=== PATIENT | male | born 1935 | race Caucasian/White ===

== ENCOUNTER 2016-08-13 10:27 | Inpatient (IN) | payer MEDICARE ==
[~2016-08-13] VITALS: Ht 177.8 cm; Wt 85.5 kg
[2016-08-13] MEDS ORDERED: SODIUM CHLORIDE FLUSH 10ML SYR IVF ONE (11:30)
[2016-08-13 11:43] LABS: ASPARTATE AMINO TRANSFERASE 53 U/L (15-37); BLOOD UREA NITROGEN 13 mg/dL (7-18)
[2016-08-13] MEDS ORDERED: SIMV5TAB5 PO (11:46)
[2016-08-13] MEDS ORDERED: METF100010 PO (11:46)
[2016-08-13] MEDS ORDERED: TAMS0.4C2 PO (11:47)
[2016-08-13 11:48] LABS: IS PT STATUS REG ER OR PRE ER? YES
[2016-08-13] MEDS ORDERED: ASPI-515 PO (11:48)
[2016-08-13] MEDS ORDERED: MULT-717 PO (11:48)
[2016-08-13] MEDS ORDERED: TIMO5DRO5 EACHEYE (11:49)
[2016-08-13] MEDS ORDERED: LATANOPROST EACHEYE (11:50)
[2016-08-13] MEDS ORDERED: LATA2.5D3 EACHEYE (11:53)
[2016-08-13] MEDS: SODIUM CHLORIDE 0.9% 1,000 ML IV SCH ×2 (12:20→18:26)
[2016-08-13] MEDS ORDERED: ONDANSETRON 2MG/ML, 2ML IVPush PRN ×2 (12:30→13:00)
[2016-08-13] MEDS ORDERED: ACETAMINOPHEN 325 MG TABLET PO PRN ×3 (12:30→15:30)
[2016-08-13] MEDS ORDERED: HEPARIN 1,000 UNITS/ML, 1ML IVPush ONE (12:30)
[2016-08-13] MEDS ORDERED: ASPIRIN 325 MG TABLET PO SCH (12:30)
[2016-08-13] MEDS ORDERED: SODIUM CHLORIDE 0.9% 1,000 ML IV SCH ×2 (12:45→15:07)
[2016-08-13] MEDS ORDERED: morphine SULFATE 10 MG/ML, 1ML IVPush PRN (13:00)
[2016-08-13] MEDS ORDERED: GLUCAGON 1 MG IM PRN (13:00)
[2016-08-13] MEDS ORDERED: DOCUSATE 100 MG CAPSULE PO PRN (13:00)
[2016-08-13] MEDS ORDERED: DEXTROSE 4 GM TAB.CHEW PO PRN (13:00)
[2016-08-13] MEDS ORDERED: DEXTROSE 50%, 50ML SYRINGE IVPush PRN (13:00)
[2016-08-13] MEDS ORDERED: hydrALAzine 20 MG/ML, 1ML IVPush PRN (13:00)
[2016-08-13] MEDS ORDERED: TICAGRELOR 90 MG TABLET ONE (13:29)
[2016-08-13] MEDS ORDERED: MIDAZOLAM 1 MG/ML, 5ML ONE (13:29)
[2016-08-13] MEDS ORDERED: BIVALIRUDIN 250 MG ONE ×2 (13:29→14:59)
[2016-08-13] MEDS ORDERED: NITROGLYCERIN 5 MG/ML, 10ML ONE (13:29)
[2016-08-13] MEDS ORDERED: FENTANYL PF 100 MCG/2ML ONE (13:29)
[2016-08-13] MEDS ORDERED: HEPARIN 1,000 UNITS/ML, 10ML ONE (13:29)
[2016-08-13] MEDS ORDERED: LIDOCAINE 2%, 20ML ONE (13:30)
[2016-08-13] MEDS: METOPROLOL SUCCINATE 25 MG TAB.ER.24H PO SCH (13:30)
[2016-08-13] MEDS ORDERED: ASPIRIN 325 MG TABLET EC ONE (15:03)
[2016-08-13] MEDS ORDERED: BIVALIRUDIN 250 MG in DEXTROSE 5% 50 ML IV SCH (15:07)
[2016-08-13] MEDS: INSULIN ASPART 100 UNITS/ML, PEN SQ-INSULIN SCH ×2 (16:00→21:00)
[2016-08-13 18:41] LABS: IS PT STATUS REG ER OR PRE ER? NO
[2016-08-13 18:59] VITALS: BP 125/75
[2016-08-13] MEDS ORDERED: ATORVASTATIN 40 MG TABLET PO SCH (21:00)
[2016-08-13] MEDS: TIMOLOL OPHTH 0.5%, 5ML EACHEYE SCH (21:00)
[2016-08-13] MEDS: TICAGRELOR 90 MG TABLET PO SCH (22:01)
[2016-08-13] MEDS: SODIUM CHLORIDE FLUSH 10ML SYR IVF SCH (22:01)
[2016-08-13] MEDS: ATORVASTATIN 40 MG TABLET PO SCH (22:01)
[2016-08-14 00:27] LABS: IS PT STATUS REG ER OR PRE ER? NO
[2016-08-14 02:29] VITALS: BP 114/64
[2016-08-14 06:26] LABS: ASPARTATE AMINO TRANSFERASE 29 U/L (15-37); BLOOD UREA NITROGEN 13 mg/dL (7-18)
[2016-08-14 06:27] LABS: IS PT STATUS REG ER OR PRE ER? NO
[2016-08-14 06:34] VITALS: BP 129/76
[2016-08-14] MEDS: INSULIN ASPART 100 UNITS/ML, PEN SQ-INSULIN SCH ×4 (07:00→20:37)
[2016-08-14] MEDS: ASPIRIN 81 MG TABLET EC PO SCH ×2 (08:29→08:31)
[2016-08-14] MEDS: TICAGRELOR 90 MG TABLET PO SCH ×2 (08:31→20:37)
[2016-08-14] MEDS: TAMSULOSIN 0.4 MG CAP.ER.24H PO SCH (08:31)
[2016-08-14] MEDS: METOPROLOL SUCCINATE 25 MG TAB.ER.24H PO SCH (08:32)
[2016-08-14] MEDS ORDERED: VIT1CAPS11 PO (08:33)
[2016-08-14] MEDS ORDERED: LATANOPROST OPHTH 0.005%, 2.5ML EACHEYE SCH ×2 (09:00→21:00)
[2016-08-14] MEDS: TIMOLOL OPHTH 0.5%, 5ML EACHEYE SCH ×2 (09:00→20:39)
[2016-08-14] MEDS: SODIUM CHLORIDE FLUSH 10ML SYR IVF SCH ×2 (09:00→20:37)
[2016-08-14 13:55] VITALS: BP 109/70
[2016-08-14 19:28] VITALS: BP 125/66
[2016-08-14] MEDS: ATORVASTATIN 40 MG TABLET PO SCH (20:37)
[2016-08-15 02:54] VITALS: BP 101/59
[2016-08-15 05:43] VITALS: BP 114/61
[2016-08-15] MEDS: METOPROLOL SUCCINATE 25 MG TAB.ER.24H PO SCH (05:45)
[2016-08-15 06:41] LABS: BLOOD UREA NITROGEN 14 mg/dL (7-18)
[2016-08-15] MEDS: INSULIN ASPART 100 UNITS/ML, PEN SQ-INSULIN SCH (07:00)
[2016-08-15 07:45] VITALS: BP 127/73
[2016-08-15] MEDS: SODIUM CHLORIDE FLUSH 10ML SYR IVF SCH (08:02)
[2016-08-15] MEDS: TICAGRELOR 90 MG TABLET PO SCH (08:02)
[2016-08-15] MEDS: TAMSULOSIN 0.4 MG CAP.ER.24H PO SCH (08:02)
[2016-08-15] MEDS: ASPIRIN 81 MG TABLET EC PO SCH ×2 (08:02→08:03)
[2016-08-15] MEDS: TIMOLOL OPHTH 0.5%, 5ML EACHEYE SCH (08:03)
[2016-08-15] MEDS ORDERED: METO25TA91 PO (08:42)
[2016-08-15] MEDS ORDERED: TICA90TA PO (08:42)
[2016-08-15] MEDS ORDERED: ATOR40TA78 PO (08:42)
== END 2016-08-15 10:30 | disposition home or self-care (01) | DRG 246 ==
LOC: ED 12:22 → EDIP 12:45 → 5SO 15:21 → DCLOUNGE 08-15 10:04
PROVIDERS: ADMIT Family Medicine; ATTEND Family Medicine
PROC: 027034Z Dilation of Coronary Artery, One Artery with Drug-eluting Intraluminal Device, Percutaneous Approach (ICD-10-PCS; principal; 2016-08-13)
PROC: 4A023N7 Measurement of Cardiac Sampling and Pressure, Left Heart, Percutaneous Approach (ICD-10-PCS; 2016-08-13)
PROC: B2111ZZ Fluoroscopy of Multiple Coronary Arteries using Low Osmolar Contrast (ICD-10-PCS; 2016-08-13)
PROC: B2131ZZ Fluoroscopy of Multiple Coronary Artery Bypass Grafts using Low Osmolar Contrast (ICD-10-PCS; 2016-08-13)
PROC: B2151ZZ Fluoroscopy of Left Heart using Low Osmolar Contrast (ICD-10-PCS; 2016-08-13)
PROC: B2181ZZ Fluoroscopy of Left Internal Mammary Bypass Graft using Low Osmolar Contrast (ICD-10-PCS; 2016-08-13)
DX: T82.858A Stenosis of other vascular prosthetic devices, implants and grafts, initial encounter (principal); I21.4 Non-ST elevation (NSTEMI) myocardial infarction; I25.810 Atherosclerosis of coronary artery bypass graft(s) without angina pectoris; E78.5 Hyperlipidemia, unspecified; N40.0 Benign prostatic hyperplasia without lower urinary tract symptoms; H40.9 Unspecified glaucoma; I10 Essential (primary) hypertension; E11.9 Type 2 diabetes mellitus without complications; I25.5 Ischemic cardiomyopathy; I25.2 Old myocardial infarction; Z87.891 Personal history of nicotine dependence; Z88.5 Allergy status to narcotic agent; Z81.8 Family history of other mental and behavioral disorders; Z82.49 Family history of ischemic heart disease and other diseases of the circulatory system
CPT/HCPCS: 36415; 71010; 80048; 80053; 80061; 82962; 83036; 83735; 84100; 84443; 84484; 85025; 85610; 85730; 93005; 93306; 93458; 99156; 99157; 99285; C1760; C1894; C9604; J0583; J1644; J2250; J3010; J3490; C1725; C1769; C1874; C1887; J7030; Q9967

== ENCOUNTER 2017-10-28 17:40 | Inpatient (IN) | payer MEDICARE ==
[~2017-10-28] VITALS: Ht 172.7 cm; Wt 84.9 kg
[~2017-10-28 17:40] MED LIST: ASPI-515 PO; ATOR40TA78 PO; LATA2.5D3 EACHEYE; LATANOPROST EACHEYE; METF100010 PO; METO25TA91 PO; MULT-717 PO; SIMV5TAB5 PO; TAMS0.4C2 PO; TICA90TA PO; TIMO5DRO5 EACHEYE; VIT1CAPS11 PO
[2017-10-28] MEDS ORDERED: SODIUM CHLORIDE FLUSH 10ML SYR IVF ONE (18:30)
[2017-10-28 18:42] LABS: BASOPHILS # (AUTO) 0.01 x10^3/uL (0-0.1); BASOPHILS % (AUTO) 0 % (0-1); EOSINOPHILS # (AUTO) 0.12 x10^3/uL (0-0.4); EOSINOPHILS % (AUTO) 2 % (1-7); LYMPHOCYTES # (AUTO) 1.61 x10^3/uL (1-3.4); LYMPHOCYTES % (AUTO) 23 % (22-44); MD NO; MEAN CORPUSCULAR HEMOGLOBIN 33.8 pg (27.5-34.5); MEAN CORPUSCULAR HGB CONC 34.9 g/dL (33.2-36.2); MEAN CORPUSCULAR VOLUME 96.8 fL (81-97); MEAN PLATELET VOLUME 8.9 fL (7.4-10.4); MONOCYTES # (AUTO) 0.58 x10^3/uL (0.2-0.8); MONOCYTES % (AUTO) 8 % (2-9); NEUTROPHILS # (AUTO) 4.59 x10^3/uL (1.8-6.8); NEUTROPHILS % (AUTO) 67 % (42-75); PLATELET COUNT 275 x10^3/uL (130-400); RED BLOOD COUNT 4.22 x10^6/uL (4.38-5.82); RED CELL DISTRIBUTION WIDTH 13.8 % (9.4-14.8)
[2017-10-28 18:54] LABS: INTERNATIONAL NORMALIZED RATIO 1.37 (0.93-1.1); PROTHROMBIN TIME 14.2 Seconds (9.6-11.5)
[2017-10-28 18:56] LABS: ALANINE AMINOTRANSFERASE 508 U/L (12-78); ALBUMIN 2.9 g/dL (3.4-5.0); ANION GAP 8 mmol/L (5-15); CALCIUM 9.6 mg/dL (8.5-10.1); CHLORIDE 102 mmol/L (98-107); CREATININE 1.04 mg/dL (0.7-1.3)
[2017-10-28 19:03] LABS: MICROSCOPIC INDICATED
[2017-10-28 19:07] LABS: CULTURE INDICATED? YES
[2017-10-28 19:09] LABS: ALKALINE PHOSPHATASE 2250 U/L (45-117)
[2017-10-28] MEDS ORDERED: OMNIPAQUE 350 MG/ML, 100ML BOTTLE ONE (21:51)
[2017-10-28 23:18] VITALS: BP 131/72
[2017-10-29] MEDS ORDERED: TIMOLOL OPHTH 0.5%, 5ML EACHEYE SCH
[2017-10-29] MEDS: SODIUM CHLORIDE 0.9% 1,000 ML IV SCH ×2 (00:17→15:00)
[2017-10-29] MEDS: ATORVASTATIN 80 MG TABLET PO SCH ×2 (00:17→20:19)
[2017-10-29] MEDS: TIMOLOL OPHTH 0.5%, 5ML EACHEYE SCH ×3 (00:17→20:19)
[2017-10-29] MEDS: LATANOPROST OPHTH 0.005%, 2.5ML EACHEYE SCH ×2 (00:22→20:35)
[2017-10-29] MEDS: INSULIN LISPRO 100 UNITS/ML, PEN SQ-INSULIN SCH ×5 (00:30→20:20)
[2017-10-29 02:34] VITALS: BP 137/64
[2017-10-29 05:22] LABS: ALBUMIN 2.5 g/dL (3.4-5.0); BASOPHILS # (AUTO) 0.01 x10^3/uL (0-0.1); BASOPHILS % (AUTO) 0 % (0-1); CALCIUM 9.1 mg/dL (8.5-10.1); CHLORIDE 102 mmol/L (98-107); EOSINOPHILS # (AUTO) 0.22 x10^3/uL (0-0.4); EOSINOPHILS % (AUTO) 4 % (1-7); LYMPHOCYTES # (AUTO) 1.03 x10^3/uL (1-3.4); LYMPHOCYTES % (AUTO) 16 % (22-44); MD NO; MEAN CORPUSCULAR HEMOGLOBIN 33.1 pg (27.5-34.5); MEAN CORPUSCULAR HGB CONC 34.6 g/dL (33.2-36.2); MEAN CORPUSCULAR VOLUME 95.7 fL (81-97); MEAN PLATELET VOLUME 9.1 fL (7.4-10.4); MONOCYTES # (AUTO) 0.66 x10^3/uL (0.2-0.8); MONOCYTES % (AUTO) 11 % (2-9); NEUTROPHILS # (AUTO) 4.42 x10^3/uL (1.8-6.8); NEUTROPHILS % (AUTO) 70 % (42-75); PLATELET COUNT 240 x10^3/uL (130-400); RED BLOOD COUNT 3.77 x10^6/uL (4.38-5.82); RED CELL DISTRIBUTION WIDTH 13.4 % (9.4-14.8)
[2017-10-29 05:40] LABS: ALANINE AMINOTRANSFERASE 409 U/L (12-78); ALKALINE PHOSPHATASE 1844 U/L (45-117); ANION GAP 9 mmol/L (5-15); BILIRUBIN,TOTAL 13.5 mg/dL (0.2-1.0); CREATININE 0.88 mg/dL (0.7-1.3); TOTAL PROTEIN 5.7 g/dL (6.4-8.2)
[2017-10-29] MEDS ORDERED: LATANOPROST OPHTH 0.005%, 2.5ML EACHEYE SCH (09:00)
[2017-10-29] MEDS: CENTRUM SILVER HOMEMEDPO SCH (09:00)
[2017-10-29] MEDS: TAMSULOSIN 0.4 MG CAP.ER.24H PO SCH (09:00)
[2017-10-29 09:59] VITALS: BP 112/64
[2017-10-29 14:53] VITALS: BP 133/73
[2017-10-29 20:38] VITALS: BP 121/65
[2017-10-30] MEDS: SODIUM CHLORIDE 0.9% 1,000 ML IV SCH ×3 (01:07→23:14)
[2017-10-30 01:15] VITALS: BP 108/64
[2017-10-30 04:58] LABS: ALBUMIN 2.2 g/dL (3.4-5.0); ANION GAP 8 mmol/L (5-15); CALCIUM 8.6 mg/dL (8.5-10.1); CHLORIDE 107 mmol/L (98-107)
[2017-10-30 04:59] LABS: BASOPHILS # (AUTO) 0.01 x10^3/uL (0-0.1); BASOPHILS % (AUTO) 0 % (0-1); EOSINOPHILS # (AUTO) 0.08 x10^3/uL (0-0.4); EOSINOPHILS % (AUTO) 1 % (1-7); LYMPHOCYTES # (AUTO) 1.03 x10^3/uL (1-3.4); LYMPHOCYTES % (AUTO) 18 % (22-44); MD NO; MEAN CORPUSCULAR HEMOGLOBIN 32.6 pg (27.5-34.5); MEAN CORPUSCULAR HGB CONC 34.1 g/dL (33.2-36.2); MEAN CORPUSCULAR VOLUME 95.7 fL (81-97); MEAN PLATELET VOLUME 8.9 fL (7.4-10.4); MONOCYTES # (AUTO) 0.57 x10^3/uL (0.2-0.8); MONOCYTES % (AUTO) 10 % (2-9); NEUTROPHILS # (AUTO) 4.06 x10^3/uL (1.8-6.8); NEUTROPHILS % (AUTO) 71 % (42-75); PLATELET COUNT 249 x10^3/uL (130-400); RED BLOOD COUNT 3.75 x10^6/uL (4.38-5.82)
[2017-10-30 05:28] LABS: ALANINE AMINOTRANSFERASE 394 U/L (12-78); ALKALINE PHOSPHATASE 1837 U/L (45-117); BILIRUBIN,TOTAL 13.6 mg/dL (0.2-1.0); CREATININE 0.88 mg/dL (0.7-1.3); TOTAL PROTEIN 5.6 g/dL (6.4-8.2)
[2017-10-30] MEDS: INSULIN LISPRO 100 UNITS/ML, PEN SQ-INSULIN SCH ×4 (07:00→20:49)
[2017-10-30] MEDS: TAMSULOSIN 0.4 MG CAP.ER.24H PO SCH (07:33)
[2017-10-30] MEDS: TIMOLOL OPHTH 0.5%, 5ML EACHEYE SCH ×2 (07:33→20:43)
[2017-10-30] MEDS: CENTRUM SILVER HOMEMEDPO SCH (07:34)
[2017-10-30 08:05] VITALS: BP 127/64
[2017-10-30 13:17] VITALS: BP 129/71
[2017-10-30] MEDS ORDERED: SIMETHICONE DROPS 40 MG/0.6 ML BOTTLE ONE (14:11)
[2017-10-30] MEDS ORDERED: FENTANYL PF 100 MCG/2ML ONE (14:19)
[2017-10-30] MEDS ORDERED: LIDOCAINE GEL 2%, 5ML ONE (14:20)
[2017-10-30] MEDS ORDERED: ONDANSETRON 2MG/ML, 2ML ONE (14:21)
[2017-10-30] MEDS ORDERED: DEXAMETHASONE 4 MG/ML, 1ML ONE (14:21)
[2017-10-30] MEDS ORDERED: CEFAZOLIN 1,000 MG ONE (14:21)
[2017-10-30] MEDS ORDERED: ALBUTEROL SULFATE 2.5 MG/3 ML NPPB PRN (15:00)
[2017-10-30] MEDS ORDERED: PROMETHAZINE 25 MG/ML, 1ML IV PRN (15:00)
[2017-10-30] MEDS ORDERED: LABETALOL 5MG/ML, 20ML IV PRN (15:00)
[2017-10-30] MEDS ORDERED: OXYcodone 5 MG/5 ML ORAL.SOL UDC PO PRN (15:00)
[2017-10-30] MEDS ORDERED: LORazepam 2 MG/ML, 1ML IVPush PRN (15:00)
[2017-10-30] MEDS ORDERED: hydrALAzine 20 MG/ML, 1ML IV PRN (15:00)
[2017-10-30] MEDS ORDERED: ONDANSETRON 2MG/ML, 2ML IV PRN (15:00)
[2017-10-30] MEDS ORDERED: FENTANYL PF 100 MCG/2ML IV PRN (15:00)
[2017-10-30] MEDS ORDERED: PROMETHAZINE 12.5 MG SUPP PR PRN (15:00)
[2017-10-30] MEDS ORDERED: ONDANSETRON ODT 8 MG PO PRN (15:00)
[2017-10-30] MEDS ORDERED: MORPHINE SULFATE 4 MG/ML, 1ML IVPush PRN (15:00)
[2017-10-30] MEDS ORDERED: MIDAZOLAM 1 MG/ML, 2ML IV PRN (15:00)
[2017-10-30] MEDS ORDERED: EPHEDRINE 50 MG/ML, 1ML IVPush PRN (15:00)
[2017-10-30] MEDS ORDERED: HYDROmorphone 1 MG/ML, 1ML IV PRN (15:00)
[2017-10-30] MEDS ORDERED: MEPERIDINE/PF 25MG/0.5ML IVPush PRN (15:00)
[2017-10-30] MEDS ORDERED: SUCCINYLCHOLINE 20 MG/ML, 10ML ONE (15:25)
[2017-10-30] MEDS ORDERED: PROPOFOL 10 MG/ML, 20ML ONE (15:25)
[2017-10-30] MEDS ORDERED: ROCURONIUM 10MG/ML,5ML ONE (15:25)
[2017-10-30] MEDS ORDERED: OMNIPAQUE 350 MG/ML, 50 ML BOTTLE ONE (15:45)
[2017-10-30 20:34] VITALS: BP 132/61
[2017-10-30] MEDS: ATORVASTATIN 80 MG TABLET PO SCH (20:43)
[2017-10-30] MEDS: LATANOPROST OPHTH 0.005%, 2.5ML EACHEYE SCH (20:44)
[2017-10-30] MEDS ORDERED: CALCIUM CARBONATE 500 MG TAB.CHEW PO PRN (22:30)
[2017-10-31 00:21] VITALS: BP 119/63
[2017-10-31] MEDS ORDERED: ONDANSETRON ODT 4 MG PO PRN (00:30)
[2017-10-31 03:38] VITALS: BP 113/60
[2017-10-31 04:55] LABS: INTERNATIONAL NORMALIZED RATIO 1.57 (0.93-1.1); PROTHROMBIN TIME 16.2 Seconds (9.6-11.5)
[2017-10-31 05:00] LABS: CHLORIDE 106 mmol/L (98-107)
[2017-10-31 05:16] LABS: ALANINE AMINOTRANSFERASE 385 U/L (12-78); ALBUMIN 2.3 g/dL (3.4-5.0); ALKALINE PHOSPHATASE 1975 U/L (45-117); ANION GAP 9 mmol/L (5-15); CALCIUM 9.1 mg/dL (8.5-10.1); CREATININE 0.91 mg/dL (0.7-1.3); TOTAL PROTEIN 5.6 g/dL (6.4-8.2)
[2017-10-31 05:25] LABS: MEAN CORPUSCULAR HEMOGLOBIN 33.9 pg (27.5-34.5); MEAN CORPUSCULAR HGB CONC 35.3 g/dL (33.2-36.2); MEAN CORPUSCULAR VOLUME 96.2 fL (81-97); MEAN PLATELET VOLUME 9.5 fL (7.4-10.4); PLATELET COUNT 265 x10^3/uL (130-400); RED BLOOD COUNT 3.81 x10^6/uL (4.38-5.82)
[2017-10-31 06:14] LABS: MD YES
[2017-10-31 06:15] LABS: LYMPHS% (MANUAL) 10 % (22-44); MONOS% (MANUAL) 7 % (2-9); SEGS% (MANUAL) 83 % (42-75)
[2017-10-31 06:16] LABS: <PLATELET ESTIMATE> ADEQUATE; <PLT MORPHOLOGY> NORMAL PLT MORPH; <RBC MORPHOLOGY> NORMAL
[2017-10-31] MEDS: INSULIN LISPRO 100 UNITS/ML, PEN SQ-INSULIN SCH ×4 (07:39→20:57)
[2017-10-31] MEDS: TIMOLOL OPHTH 0.5%, 5ML EACHEYE SCH ×2 (07:39→20:57)
[2017-10-31] MEDS: CENTRUM SILVER HOMEMEDPO SCH (07:40)
[2017-10-31] MEDS: TAMSULOSIN 0.4 MG CAP.ER.24H PO SCH (07:41)
[2017-10-31 07:44] VITALS: BP 132/63
[2017-10-31] MEDS ORDERED: D5%-0.45% NACL 1,000 ML IV SCH (08:00)
[2017-10-31 15:14] VITALS: BP 124/64
[2017-10-31 20:27] VITALS: BP 126/61
[2017-10-31] MEDS: LATANOPROST OPHTH 0.005%, 2.5ML EACHEYE SCH (20:58)
[2017-10-31] MEDS: ATORVASTATIN 80 MG TABLET PO SCH (21:01)
[2017-10-31] MEDS: D5%-0.45% NACL 1,000 ML IV SCH (23:43)
[2017-11-01] VITALS (16 sets, daily range): BP systolic 106–130; BP diastolic 52–69
[2017-11-01 07:31] LABS: INTERNATIONAL NORMALIZED RATIO 1.46 (0.93-1.1); PROTHROMBIN TIME 15.1 Seconds (9.6-11.5)
[2017-11-01 07:33] LABS: MD YES; MEAN CORPUSCULAR HGB CONC 34.5 g/dL (33.2-36.2); MEAN CORPUSCULAR VOLUME 95.7 fL (81-97); MEAN PLATELET VOLUME 9.5 fL (7.4-10.4); PLATELET COUNT 237 x10^3/uL (130-400); RED BLOOD COUNT 3.47 x10^6/uL (4.38-5.82); RED CELL DISTRIBUTION WIDTH 13.7 % (9.4-14.8)
[2017-11-01 07:39] LABS: ALANINE AMINOTRANSFERASE 391 U/L (12-78); ALBUMIN 2.3 g/dL (3.4-5.0); ANION GAP 9 mmol/L (5-15); CALCIUM 8.5 mg/dL (8.5-10.1); CHLORIDE 103 mmol/L (98-107); CREATININE 0.82 mg/dL (0.7-1.3)
[2017-11-01 07:53] LABS: ALKALINE PHOSPHATASE 1573 U/L (45-117); BILIRUBIN,TOTAL 13.1 mg/dL (0.2-1.0); TOTAL PROTEIN 5.6 g/dL (6.4-8.2)
[2017-11-01 08:22] LABS: BAND#(MANUAL) 0.24 x10^3/uL; BANDS%(MANUAL) 2 % (0-7); LYMPH#(MANUAL) 1.53 x10^3/uL (1-3.4); LYMPHS% (MANUAL) 13 % (22-44); MONOS#(MANUAL) 0.59 x10^3/uL (0.3-2.7); MONOS% (MANUAL) 5 % (2-9); SEG#(MANUAL) 9.44 x10^3/uL (1.8-6.8); SEGS% (MANUAL) 80 % (42-75)
[2017-11-01 08:25] LABS: <PLATELET ESTIMATE> ADEQUATE; <PLT MORPHOLOGY> NORMAL PLT MORPH; <RBC MORPHOLOGY> NORMAL
[2017-11-01] MEDS: INSULIN LISPRO 100 UNITS/ML, PEN SQ-INSULIN SCH ×4 (08:27→22:14)
[2017-11-01] MEDS: CENTRUM SILVER HOMEMEDPO SCH (08:28)
[2017-11-01] MEDS: D5%-0.45% NACL 1,000 ML IV SCH ×2 (08:28→16:42)
[2017-11-01] MEDS: TIMOLOL OPHTH 0.5%, 5ML EACHEYE SCH ×2 (08:28→22:04)
[2017-11-01] MEDS: TAMSULOSIN 0.4 MG CAP.ER.24H PO SCH (08:30)
[2017-11-01] MEDS ORDERED: FUROSEMIDE 20 MG/2 ML IV ONE (09:15)
[2017-11-01] MEDS ORDERED: LIDOCAINE-MPF 2%, 2ML ONE (09:39)
[2017-11-01] MEDS ORDERED: FLUMAZENIL 0.1 MG/1 ML, 5ML ONE (10:04)
[2017-11-01] MEDS ORDERED: FENTANYL PF 100 MCG/2ML ONE (10:04)
[2017-11-01] MEDS ORDERED: MIDAZOLAM 1 MG/ML, 5ML ONE (10:04)
[2017-11-01] MEDS ORDERED: NALOXONE 1 MG/ML, 2ML ONE (10:04)
[2017-11-01] MEDS ORDERED: VISIPAQUE 270 MG/ML, 50ML BOTTLE ONE (10:48)
[2017-11-01] MEDS ORDERED: ACETAMINOPHEN 325 MG TABLET ONE (12:47)
[2017-11-01] MEDS ORDERED: ACETAMINOPHEN 325 MG TABLET PO PRN (13:00)
[2017-11-01] MEDS: LATANOPROST OPHTH 0.005%, 2.5ML EACHEYE SCH (21:00)
[2017-11-01] MEDS: ATORVASTATIN 80 MG TABLET PO SCH (22:14)
[2017-11-01] MEDS: DOCUSATE 100 MG CAPSULE PO PRN (22:14)
[2017-11-01] MEDS: SENNA/DOCUSATE TABLET PO PRN (22:14)
[2017-11-02] MEDS: D5%-0.45% NACL 1,000 ML IV SCH ×2 (00:53→08:41)
[2017-11-02 02:55] VITALS: BP 103/57
[2017-11-02 05:06] LABS: MEAN CORPUSCULAR HEMOGLOBIN 33.1 pg (27.5-34.5); MEAN CORPUSCULAR HGB CONC 34.8 g/dL (33.2-36.2); MEAN CORPUSCULAR VOLUME 95.2 fL (81-97); MEAN PLATELET VOLUME 9.8 fL (7.4-10.4); PLATELET COUNT 192 x10^3/uL (130-400); RED CELL DISTRIBUTION WIDTH 14.1 % (9.4-14.8)
[2017-11-02 05:11] LABS: ALBUMIN 2.1 g/dL (3.4-5.0); ANION GAP 6 mmol/L (5-15); CALCIUM 8.4 mg/dL (8.5-10.1); CHLORIDE 103 mmol/L (98-107)
[2017-11-02 05:26] LABS: ALANINE AMINOTRANSFERASE 281 U/L (12-78); ALKALINE PHOSPHATASE 1393 U/L (45-117); BILIRUBIN,TOTAL 7.4 mg/dL (0.2-1.0); CREATININE 0.79 mg/dL (0.7-1.3); TOTAL PROTEIN 5.5 g/dL (6.4-8.2)
[2017-11-02 05:57] LABS: MD YES
[2017-11-02 05:59] LABS: EOS#(MANUAL) 0.19 x10^3/uL (0.0-0.4); EOS% (MANUAL) 2 % (1-7); LYMPH#(MANUAL) 1.05 x10^3/uL (1-3.4); LYMPHS% (MANUAL) 11 % (22-44); MONOS#(MANUAL) 0.67 x10^3/uL (0.3-2.7); MONOS% (MANUAL) 7 % (2-9); SEGS% (MANUAL) 80 % (42-75)
[2017-11-02 06:00] LABS: <PLATELET ESTIMATE> ADEQUATE; <PLT MORPHOLOGY> NORMAL PLT MORPH; <RBC MORPHOLOGY> NORMAL
[2017-11-02] MEDS ORDERED: POTASSIUM CHLORIDE 20 MEQ TAB.ER.PRT PO ONE ×2 (07:30→11:30)
[2017-11-02 08:32] VITALS: BP 119/62
[2017-11-02] MEDS: DOCUSATE 100 MG CAPSULE PO PRN (08:41)
[2017-11-02] MEDS: TAMSULOSIN 0.4 MG CAP.ER.24H PO SCH (08:42)
[2017-11-02] MEDS: TIMOLOL OPHTH 0.5%, 5ML EACHEYE SCH (08:42)
[2017-11-02] MEDS: CENTRUM SILVER HOMEMEDPO SCH (08:42)
[2017-11-02] MEDS: SENNA/DOCUSATE TABLET PO PRN (08:42)
[2017-11-02] MEDS: INSULIN LISPRO 100 UNITS/ML, PEN SQ-INSULIN SCH ×2 (08:43→11:25)
[2017-11-02] MEDS ORDERED: NEUTRA PHOS K 250 MG TABLET PO SCH (13:30)
[2017-11-02 14:08] VITALS: BP 119/52
== END 2017-11-02 15:35 | disposition home health service (06) | DRG 840 ==
LOC: ED 21:59 → 3NW 22:05
PROVIDERS: ADMIT Family Medicine; ATTEND Family Medicine
PROC: 0FJB8ZZ Inspection of Hepatobiliary Duct, Via Natural or Artificial Opening Endoscopic (ICD-10-PCS; 2017-10-30)
PROC: 0WBH4ZX Excision of Retroperitoneum, Percutaneous Endoscopic Approach, Diagnostic (ICD-10-PCS; 2017-10-30)
PROC: 0DB58ZX Excision of Esophagus, Via Natural or Artificial Opening Endoscopic, Diagnostic (ICD-10-PCS; principal; 2017-10-30 14:30)
PROC: 30233L1 Transfusion of Nonautologous Fresh Plasma into Peripheral Vein, Percutaneous Approach (ICD-10-PCS; 2017-11-01)
PROC: 30233K1 Transfusion of Nonautologous Frozen Plasma into Peripheral Vein, Percutaneous Approach (ICD-10-PCS; 2017-11-01)
PROC: 0F9930Z Drainage of Common Bile Duct with Drainage Device, Percutaneous Approach (ICD-10-PCS; 2017-11-01)
DX: C85.90 Non-Hodgkin lymphoma, unspecified, unspecified site (principal); K83.1 Obstruction of bile duct; K85.10 Biliary acute pancreatitis without necrosis or infection; C25.9 Malignant neoplasm of pancreas, unspecified; K22.10 Ulcer of esophagus without bleeding; E11.9 Type 2 diabetes mellitus without complications; E78.00 Pure hypercholesterolemia, unspecified; H35.30 Unspecified macular degeneration; H40.9 Unspecified glaucoma; I25.10 Atherosclerotic heart disease of native coronary artery without angina pectoris; I25.2 Old myocardial infarction; K44.9 Diaphragmatic hernia without obstruction or gangrene; N40.0 Benign prostatic hyperplasia without lower urinary tract symptoms; Z82.49 Family history of ischemic heart disease and other diseases of the circulatory system; Z85.828 Personal history of other malignant neoplasm of skin; Z87.891 Personal history of nicotine dependence; Z95.1 Presence of aortocoronary bypass graft; Z95.5 Presence of coronary angioplasty implant and graft
CPT/HCPCS: 36415; 47534; 74177; 74183; 76700; 80053; 81001; 82962; 83690; 83735; 84100; 85025; 85610; 85730; 86301; 86850; 86900; 87086; 88172; 88173; 88177; 88184; 88185; 88305; 88341; 88342; 93005; 99156; 99157; 99285; G0378; J0690; J1100; J2250; J2405; J2704; J3010; J3490; Q0162; Q9966; Q9967; C1729; C1751; C1769; G0461; J0330; J1815; J2310; J7030; P9017

== ENCOUNTER 2017-11-16 07:08 | Day surgery (SDC) | payer MEDICARE ==
[~2017-11-16] VITALS: Ht 172.7 cm; Wt 73.3 kg
[2017-11-16] MEDS ORDERED: LACTATED RINGERS 1,000 ML IV SCH (07:45)
[2017-11-16] MEDS ORDERED: CHOL100011 PO (07:48)
[2017-11-16] MEDS ORDERED: FENTANYL PF 100 MCG/2ML ONE ×2 (07:51→08:45)
[2017-11-16 07:52] VITALS: BP 120/75
[2017-11-16] MEDS ORDERED: LIDOCAINE-MPF 1%, 2ML INFIL ONE (08:00)
[2017-11-16 08:01] VITALS: BP 120/75
[2017-11-16] MEDS ORDERED: MIDAZOLAM 1 MG/ML, 2ML ONE (08:45)
[2017-11-16] MEDS ORDERED: PIPERACILLIN/TAZO/PMX 3.375GM 50 ML ONE (08:49)
[2017-11-16] MEDS ORDERED: METOCLOPRAMIDE 5 MG/ML, 2ML ONE (08:54)
[2017-11-16] MEDS ORDERED: ONDANSETRON 2MG/ML, 2ML ONE (08:54)
[2017-11-16] MEDS ORDERED: PROPOFOL 10 MG/ML, 20ML ONE (08:54)
[2017-11-16] MEDS ORDERED: SUCCINYLCHOLINE 20 MG/ML, 10ML ONE (08:54)
[2017-11-16] MEDS ORDERED: DEXAMETHASONE 4 MG/ML, 1ML ONE (08:54)
[2017-11-16] MEDS ORDERED: OMNIPAQUE 350 MG/ML, 50 ML BOTTLE ONE (09:32)
[2017-11-16] MEDS ORDERED: ONDANSETRON 2MG/ML, 2ML IVPush PRN (10:00)
[2017-11-16] MEDS ORDERED: OXYcodone 5 MG/5 ML ORAL.SOL UDC PO PRN (10:00)
[2017-11-16] MEDS ORDERED: MIDAZOLAM 1 MG/ML, 2ML IV PRN (10:00)
[2017-11-16] MEDS ORDERED: MEPERIDINE/PF 25MG/0.5ML IVPush PRN (10:00)
[2017-11-16] MEDS ORDERED: LABETALOL 5MG/ML, 20ML IV PRN (10:00)
[2017-11-16] MEDS ORDERED: FENTANYL PF 100 MCG/2ML IV PRN (10:00)
[2017-11-16] MEDS ORDERED: HYDROmorphone 1 MG/ML, 1ML IV PRN (10:00)
== END 2017-11-16 11:10 | disposition home or self-care (01) ==
LOC: OUT 07:08
PROVIDERS: ATTEND Internal Medicine Gastroenterology
DX: K83.1 Obstruction of bile duct (principal); E11.9 Type 2 diabetes mellitus without complications; I25.2 Old myocardial infarction; Z95.1 Presence of aortocoronary bypass graft; Z79.82 Long term (current) use of aspirin; Z98.890 Other specified postprocedural states; Z88.5 Allergy status to narcotic agent; Z88.8 Allergy status to other drugs, medicaments and biological substances; Z72.89 Other problems related to lifestyle; Z87.891 Personal history of nicotine dependence
CPT/HCPCS: 43262; 43276; 74328; 82962; C1769; C1894; C2625; J0330; J1100; J2250; J2405; J2543; J2704; J2765; J3010; J3490; J7120; Q9967

== ENCOUNTER → 2017-11-18 | Outpatient (CLI) | payer MEDICARE ==
[~2017-11-18] MED LIST changes: +CHOL100011 PO
== END | disposition home or self-care (01) ==
LOC: PETCFH 09:07
PROVIDERS: ATTEND Specialist
DX: R19.09 Other intra-abdominal and pelvic swelling, mass and lump (principal)
CPT/HCPCS: 78815; A9552

== ENCOUNTER → 2018-01-29 | Outpatient (CLI) | payer MEDICARE ==
[~2018-01-29] MED LIST changes: +OMNIPAQUE 350 MG/ML, 100ML BOTTLE ONE
== END | disposition home or self-care (01) ==
LOC: CFH 09:04
PROVIDERS: ATTEND Specialist
DX: Z51.11 Encounter for antineoplastic chemotherapy (principal); C83.83 Other non-follicular lymphoma, intra-abdominal lymph nodes; D48.3 Neoplasm of uncertain behavior of retroperitoneum; D70.1 Agranulocytosis secondary to cancer chemotherapy
CPT/HCPCS: 74177; 82565; Q9967

== ENCOUNTER → 2018-03-24 | Outpatient (CLI) | payer MEDICARE ==
[~2018-03-24] MED LIST changes: -OMNIPAQUE 350 MG/ML, 100ML BOTTLE ONE; +SIMV5TAB14 PO; -SIMV5TAB5 PO
== END | disposition home or self-care (01) ==
LOC: PETCFH 08:28
PROVIDERS: ATTEND Specialist
DX: C83.83 Other non-follicular lymphoma, intra-abdominal lymph nodes (principal)
CPT/HCPCS: 78815; A9552

== ENCOUNTER 2018-04-21 08:57 | Day surgery (SDC) | payer MEDICARE ==
[~2018-04-21] VITALS: Ht 172.7 cm; Wt 84.4 kg
[2018-04-21] MEDS ORDERED: ATOR20TA86 PO (09:34)
[2018-04-21 09:35] VITALS: BP 130/77
[2018-04-21] MEDS ORDERED: LACTATED RINGERS 1,000 ML IV SCH (09:44)
== END 2018-04-21 10:15 | disposition home or self-care (01) ==
LOC: OUT 08:57
PROVIDERS: ATTEND Internal Medicine Gastroenterology
DX: K83.1 Obstruction of bile duct (principal); Z53.9 Procedure and treatment not carried out, unspecified reason; Z88.5 Allergy status to narcotic agent
CPT/HCPCS: 93005

== ENCOUNTER 2018-05-19 09:10 | Day surgery (SDC) | payer MEDICARE ==
[~2018-05-19] VITALS: Ht 172.7 cm; Wt 85.4 kg
[~2018-05-19 09:10] MED LIST changes: +ATOR20TA86 PO
[2018-05-19] MEDS ORDERED: LACTATED RINGERS 1,000 ML IV SCH (09:54)
[2018-05-19 09:57] VITALS: BP 124/67
[2018-05-19 11:05] LABS: ALANINE AMINOTRANSFERASE 28 U/L (12-78); ALBUMIN 3.3 g/dL (3.4-5.0); ANION GAP 8 mmol/L (5-15); CALCIUM 8.9 mg/dL (8.5-10.1); CHLORIDE 108 mmol/L (98-107); CREATININE 0.86 mg/dL (0.7-1.3)
[2018-05-19 11:07] LABS: ALKALINE PHOSPHATASE 262 U/L (45-117); TOTAL PROTEIN 6.2 g/dL (6.4-8.2)
[2018-05-19] MEDS ORDERED: PROPOFOL 10 MG/ML, 20ML ONE (11:09)
[2018-05-19] MEDS ORDERED: SUCCINYLCHOLINE 20 MG/ML, 10ML ONE (11:10)
[2018-05-19] MEDS ORDERED: OMNIPAQUE 350 MG/ML, 50 ML BOTTLE ONE (11:49)
[2018-05-19] MEDS ORDERED: CIPROFLOXACIN/PMX 400MG/200ML 200 ML IV ONE (12:00)
[2018-05-19] MEDS ORDERED: ROCURONIUM 10MG/ML,5ML ONE (16:13)
== END 2018-05-19 13:45 | disposition home or self-care (01) ==
LOC: OUT 09:10
PROVIDERS: ATTEND Internal Medicine Gastroenterology
DX: K80.51 Calculus of bile duct without cholangitis or cholecystitis with obstruction (principal); N40.0 Benign prostatic hyperplasia without lower urinary tract symptoms; I25.10 Atherosclerotic heart disease of native coronary artery without angina pectoris; E11.9 Type 2 diabetes mellitus without complications; E78.5 Hyperlipidemia, unspecified; Z79.84 Long term (current) use of oral hypoglycemic drugs; Z88.5 Allergy status to narcotic agent
CPT/HCPCS: 36415; 43264; 43276; 74328; 80053; 82962; C1769; J0330; J0744; J2704; Q9967

== ENCOUNTER 2018-07-16 13:03 | Inpatient (IN) | payer MEDICARE ==
[~2018-07-16] VITALS: Ht 172.7 cm; Wt 81.2 kg
--- NOTE | 2018-07-16 13:25 | NUR ---
PT IN BED AND IN GOWN. NIBP AND O2 MONITORING IN PLACE. PROVIDER AT BEDSIDE AWAITING ORDERS AT THIS TIME.
--- NOTE | 2018-07-16 13:51 | NUR ---
CT WAITING ON LAB RESULTS TO PERFORM EXAM. MA
[2018-07-16 13:53] LABS: BASOPHILS # (AUTO) 0.02 x10^3/uL (0-0.1); BASOPHILS % (AUTO) 0 % (0-1); EOSINOPHILS # (AUTO) 0.14 x10^3/uL (0-0.4); EOSINOPHILS % (AUTO) 3 % (1-7); LYMPHOCYTES # (AUTO) 0.64 x10^3/uL (1-3.4); LYMPHOCYTES % (AUTO) 15 % (22-44); MD NO; MEAN CORPUSCULAR HEMOGLOBIN 32.6 pg (27.5-34.5); MEAN CORPUSCULAR HGB CONC 33.7 g/dL (33.2-36.2); MEAN CORPUSCULAR VOLUME 96.8 fL (81-97); MEAN PLATELET VOLUME 7.9 fL (7.4-10.4); MONOCYTES # (AUTO) 0.24 x10^3/uL (0.2-0.8); MONOCYTES % (AUTO) 6 % (2-9); NEUTROPHILS # (AUTO) 3.29 x10^3/uL (1.8-6.8); NEUTROPHILS % (AUTO) 76 % (42-75); PLATELET COUNT 211 x10^3/uL (130-400); RED BLOOD COUNT 3.95 x10^6/uL (4.38-5.82); RED CELL DISTRIBUTION WIDTH 14.6 % (9.4-14.8)
[2018-07-16 14:03] LABS: INTERNATIONAL NORMALIZED RATIO 1.08 (0.93-1.1); PROTHROMBIN TIME 11.3 Seconds (9.6-11.5)
[2018-07-16 14:06] LABS: ANION GAP 9 mmol/L (5-15); CALCIUM 10.2 mg/dL (8.5-10.1); CHLORIDE 103 mmol/L (98-107)
[2018-07-16 14:22] LABS: ALANINE AMINOTRANSFERASE 198 U/L (12-78); ALKALINE PHOSPHATASE 2245 U/L (45-117); BILIRUBIN,TOTAL 10.2 mg/dL (0.2-1.0); CREATININE 1.04 mg/dL (0.7-1.3); TOTAL PROTEIN 6.7 g/dL (6.4-8.2)
--- NOTE | 2018-07-16 14:46 | NUR ---
CT WAITING FOR IV ACCESS
--- NOTE | 2018-07-16 15:28 | NUR ---
PT IN CT AT THIS TIME.
[2018-07-16] MEDS ORDERED: OMNIPAQUE 350 MG/ML, 100ML BOTTLE ONE (15:37)
--- NOTE | 2018-07-16 15:57 | NUR ---
pt back from ct. pt in bed at this time. pt resting comfortably and expresses no wants or needs at this time.
[2018-07-16] MEDS ORDERED: DIPHENHYDRAMINE 50 MG/ML, 1ML IVPush ONE (16:00)
[2018-07-16] MEDS ORDERED: DIPHENHYDRAMINE 50 MG/ML, 1ML ONE (16:07)
[2018-07-16] MEDS ORDERED: ONDANSETRON ODT 4 MG PO PRN (18:00)
[2018-07-16] MEDS ORDERED: ACETAMINOPHEN 325 MG TABLET PO PRN (18:00)
[2018-07-16] MEDS ORDERED: morphine SULFATE 10 MG/ML, 1ML IVPush PRN (18:00)
[2018-07-16] MEDS ORDERED: PROMETHAZINE 25 MG/ML, 1ML IM PRN (18:00)
[2018-07-16] MEDS ORDERED: BISACODYL 10 MG SUPP PR PRN (18:00)
[2018-07-16] MEDS ORDERED: POLYETHYLENE GLYCOL 17 GM PACKET PO PRN (18:00)
[2018-07-16] MEDS ORDERED: DOCUSATE 100 MG CAPSULE PO PRN (18:00)
[2018-07-16] MEDS ORDERED: ONDANSETRON 2MG/ML, 2ML IVPush PRN (18:00)
[2018-07-16] MEDS ORDERED: hydrALAzine 20 MG/ML, 1ML IVPush PRN (18:00)
[2018-07-16 18:46] LABS: FREE T4 (FREE THYROXINE) 1.4 ng/dL (0.76-1.46); THYROID STIMULATING HORMONE 1.19 mIU/L (0.358-3.740)
[2018-07-16 18:52] VITALS: BP 114/62
[2018-07-16] MEDS: PIPERACILLIN/TAZO/PMX 3.375GM 50 ML IV SCH (19:49)
[2018-07-16] MEDS: SODIUM CHLORIDE 0.9% 1,000 ML IV SCH (19:49)
[2018-07-16 20:33] LABS: HEMOGLOBIN A1C 7.3 % (4.2-6.3)
[2018-07-16] MEDS ORDERED: TEMPLATE NON-FORMULARY MED. (Vit A/Vit C/Vit E/Zinc/Copper** (Preservision Areds Softgel PO SCH (21:00)
[2018-07-16] MEDS: ATORVASTATIN 20 MG TABLET PO SCH (21:00)
[2018-07-16 21:05] LABS: MICROSCOPIC NOT IND
[2018-07-16 21:08] LABS: CULTURE INDICATED? NO
[2018-07-16] MEDS: LATANOPROST OPHTH 0.005%, 2.5ML EACHEYE SCH (21:50)
[2018-07-16] MEDS: TIMOLOL OPHTH 0.5%, 5ML EACHEYE SCH (21:50)
[2018-07-17 01:20] VITALS: BP 107/63
[2018-07-17] MEDS: PIPERACILLIN/TAZO/PMX 3.375GM 50 ML IV SCH ×4 (01:55→22:41)
[2018-07-17 03:23] LABS: MEAN CORPUSCULAR HEMOGLOBIN 32.4 pg (27.5-34.5); MEAN CORPUSCULAR HGB CONC 33.9 g/dL (33.2-36.2); MEAN CORPUSCULAR VOLUME 95.4 fL (81-97); MEAN PLATELET VOLUME 7.9 fL (7.4-10.4); PLATELET COUNT 211 x10^3/uL (130-400); RED BLOOD COUNT 3.44 x10^6/uL (4.38-5.82); RED CELL DISTRIBUTION WIDTH 14.9 % (9.4-14.8)
[2018-07-17 03:27] LABS: ALBUMIN 2.3 g/dL (3.4-5.0); ANION GAP 8 mmol/L (5-15); CALCIUM 9.1 mg/dL (8.5-10.1); CHLORIDE 107 mmol/L (98-107)
[2018-07-17 03:45] LABS: ALANINE AMINOTRANSFERASE 152 U/L (12-78); ALKALINE PHOSPHATASE 1816 U/L (45-117); BILIRUBIN,TOTAL 8.9 mg/dL (0.2-1.0); CHOL/HDL RATIO 23.4; CHOLESTEROL, TOTAL 187 mg/dL (140-239); CREATININE 0.82 mg/dL (0.7-1.3); HDL CHOL % 4 % (26-37); HDL CHOLESTEROL (DIRECT) 8 mg/dL (40-60); TOTAL PROTEIN 5.3 g/dL (6.4-8.2)
[2018-07-17 03:48] LABS: LDL CHOLESTEROL,CALCULATED 152 mg/dL (54-169); TRIGLYCERIDES 133 mg/dL (50-200); VLDL CHOLESTEROL 27 mg/dL (0-25)
[2018-07-17 03:58] LABS: BASOPHILS # (AUTO) 0.01 x10^3/uL (0-0.1); BASOPHILS % (AUTO) 0 % (0-1); EOSINOPHILS # (AUTO) 0.15 x10^3/uL (0-0.4); EOSINOPHILS % (AUTO) 4 % (1-7); LYMPHOCYTES # (AUTO) 0.48 x10^3/uL (1-3.4); LYMPHOCYTES % (AUTO) 12 % (22-44); MD SCAN; MONOCYTES # (AUTO) 0.26 x10^3/uL (0.2-0.8); MONOCYTES % (AUTO) 6 % (2-9); NEUTROPHILS # (AUTO) 3.29 x10^3/uL (1.8-6.8); NEUTROPHILS % (AUTO) 79 % (42-75)
[2018-07-17] MEDS: SODIUM CHLORIDE 0.9% 1,000 ML IV SCH (06:22)
[2018-07-17] MEDS ORDERED: FENTANYL PF 250 MCG/5ML ONE (06:59)
[2018-07-17] MEDS ORDERED: NEOSTIGMINE 1 MG/ML, 10ML ONE (07:01)
[2018-07-17] MEDS ORDERED: PROPOFOL 10 MG/ML, 20ML ONE (07:01)
[2018-07-17] MEDS ORDERED: GLYCOPYRROLATE 0.2MG/1ML, 5ML ONE (07:01)
[2018-07-17] MEDS ORDERED: ROCURONIUM 10MG/ML,5ML ONE (07:01)
[2018-07-17 07:24] VITALS: BP 122/68
[2018-07-17] MEDS ORDERED: PROMETHAZINE 25 MG SUPP PR PRN (08:30)
[2018-07-17] MEDS ORDERED: PROMETHAZINE 25 MG/ML, 1ML IM PRN ×2 (08:30)
[2018-07-17] MEDS ORDERED: ONDANSETRON 2MG/ML, 2ML IV PRN (08:30)
[2018-07-17] MEDS ORDERED: PROMETHAZINE 12.5 MG SUPP PR PRN (08:30)
[2018-07-17] MEDS ORDERED: ONDANSETRON ODT 8 MG PO PRN (08:30)
[2018-07-17] MEDS ORDERED: MORPHINE SULFATE 4 MG/ML, 1ML IVPush PRN (08:30)
[2018-07-17] MEDS ORDERED: HYDROmorphone 2 MG/ML, 1ML IVPush PRN (08:30)
[2018-07-17] MEDS ORDERED: PROMETHAZINE 25 MG/ML, 1ML IV PRN (08:30)
[2018-07-17] MEDS ORDERED: OXYcodone 5 MG/5 ML ORAL.SOL UDC PO PRN (08:30)
[2018-07-17] MEDS ORDERED: FENTANYL PF 100 MCG/2ML IV PRN (08:30)
[2018-07-17] MEDS ORDERED: ASPIRIN 81 MG TABLET EC PO SCH (09:00)
[2018-07-17] MEDS: TIMOLOL OPHTH 0.5%, 5ML EACHEYE SCH ×2 (09:00→20:06)
[2018-07-17] MEDS: CHOLECALCIFEROL 1,000 UNIT TABLET PO SCH (09:00)
[2018-07-17] MEDS: MULTIVITAMINS/MINERALS TABLET PO SCH (09:00)
[2018-07-17] MEDS: TAMSULOSIN 0.4 MG CAP.ER.24H PO SCH (09:00)
[2018-07-17] MEDS ORDERED: INDOMETHACIN 50 MG SUPP.RECT ONE (09:40)
[2018-07-17] MEDS ORDERED: OMNIPAQUE 350 MG/ML, 50 ML BOTTLE ONE (09:52)
[2018-07-17] MEDS ORDERED: INDOMETHACIN 50 MG SUPP.RECT PR ONE (10:00)
[2018-07-17] MEDS ORDERED: MAGNESIUM SULFATE PMX 2GM/50ML 50 ML IV ONE (10:00)
[2018-07-17] MEDS: PHYTONADIONE 10 MG/ML, 1ML SQ SCH (10:58)
[2018-07-17 13:00] VITALS: BP 122/62
[2018-07-17] MEDS ORDERED: OMNIPAQUE 350 MG/ML, 100ML BOTTLE ONE (16:23)
[2018-07-17] MEDS ORDERED: HEPARIN 5,000 UNITS/ML, 1ML IV ONE (18:00)
[2018-07-17] MEDS ORDERED: HEPARIN 5,000 UNITS/ML, 1ML IV PRN (18:00)
[2018-07-17 19:00] VITALS: BP 107/57
[2018-07-17] MEDS: ATORVASTATIN 20 MG TABLET PO SCH (20:05)
[2018-07-17] MEDS: HEPARIN 25,000 UNITS/500ML PMX 500 ML IV PRN (20:05)
[2018-07-18 01:20] VITALS: BP 109/58
[2018-07-18] MEDS: PIPERACILLIN/TAZO/PMX 3.375GM 50 ML IV SCH ×3 (04:51→16:25)
[2018-07-18 07:22] VITALS: BP 110/57
[2018-07-18] MEDS: LATANOPROST OPHTH 0.005%, 2.5ML EACHEYE SCH ×2 (09:00→21:09)
[2018-07-18] MEDS: PHYTONADIONE 10 MG/ML, 1ML SQ SCH (09:00)
[2018-07-18] MEDS: MULTIVITAMINS/MINERALS TABLET PO SCH (10:01)
[2018-07-18] MEDS: CHOLECALCIFEROL 1,000 UNIT TABLET PO SCH (10:01)
[2018-07-18] MEDS: TAMSULOSIN 0.4 MG CAP.ER.24H PO SCH (10:01)
[2018-07-18] MEDS: TIMOLOL OPHTH 0.5%, 5ML EACHEYE SCH ×2 (10:02→21:09)
[2018-07-18 15:58] VITALS: BP 100/56
[2018-07-18 18:57] VITALS: BP 110/64
[2018-07-18] MEDS: ATORVASTATIN 20 MG TABLET PO SCH (21:09)
[2018-07-18] MEDS: DIPHENHYDRAMINE 25 MG CAPSULE PO PRN (21:27)
[2018-07-19] MEDS: PIPERACILLIN/TAZO/PMX 3.375GM 50 ML IV SCH ×4 (00:08→18:03)
[2018-07-19] MEDS: HEPARIN 25,000 UNITS/500ML PMX 500 ML IV PRN (01:09)
[2018-07-19 02:08] VITALS: BP 106/56
[2018-07-19 04:28] LABS: PROTHROMBIN TIME 10.5 Seconds (9.6-11.5)
[2018-07-19 06:21] LABS: BASOPHILS % (AUTO) 0 % (0-1); EOSINOPHILS # (AUTO) 0.15 x10^3/uL (0-0.4); EOSINOPHILS % (AUTO) 4 % (1-7); LYMPHOCYTES # (AUTO) 0.59 x10^3/uL (1-3.4); LYMPHOCYTES % (AUTO) 15 % (22-44); MD NO; MEAN CORPUSCULAR HEMOGLOBIN 32.1 pg (27.5-34.5); MEAN CORPUSCULAR HGB CONC 34.2 g/dL (33.2-36.2); MEAN CORPUSCULAR VOLUME 93.7 fL (81-97); MEAN PLATELET VOLUME 7.8 fL (7.4-10.4); MONOCYTES # (AUTO) 0.23 x10^3/uL (0.2-0.8); MONOCYTES % (AUTO) 6 % (2-9); NEUTROPHILS # (AUTO) 2.97 x10^3/uL (1.8-6.8); NEUTROPHILS % (AUTO) 76 % (42-75); PLATELET COUNT 200 x10^3/uL (130-400); RED BLOOD COUNT 3.39 x10^6/uL (4.38-5.82); RED CELL DISTRIBUTION WIDTH 14.7 % (9.4-14.8)
[2018-07-19 06:30] LABS: ALBUMIN 2.1 g/dL (3.4-5.0); ANION GAP 8 mmol/L (5-15); CALCIUM 9.2 mg/dL (8.5-10.1); CHLORIDE 105 mmol/L (98-107)
[2018-07-19 06:45] LABS: ALANINE AMINOTRANSFERASE 120 U/L (12-78); ALKALINE PHOSPHATASE 1706 U/L (45-117); BILIRUBIN,TOTAL 10.4 mg/dL (0.2-1.0); CREATININE 0.94 mg/dL (0.7-1.3); TOTAL PROTEIN 4.9 g/dL (6.4-8.2)
[2018-07-19 07:15] VITALS: BP 108/54
[2018-07-19] MEDS: PHYTONADIONE 10 MG/ML, 1ML SQ SCH (07:53)
[2018-07-19] MEDS: TIMOLOL OPHTH 0.5%, 5ML EACHEYE SCH ×2 (08:20→22:09)
[2018-07-19] MEDS ORDERED: POTASSIUM CHLORIDE 20 MEQ TAB.ER.PRT PO ONE ×2 (09:00→21:30)
[2018-07-19] MEDS: CHOLECALCIFEROL 1,000 UNIT TABLET PO SCH (09:00)
[2018-07-19] MEDS: MULTIVITAMINS/MINERALS TABLET PO SCH (09:00)
[2018-07-19] MEDS ORDERED: MAGNESIUM SULFATE PMX 2GM/50ML 50 ML IV ONE (09:00)
[2018-07-19] MEDS: TAMSULOSIN 0.4 MG CAP.ER.24H PO SCH (09:00)
[2018-07-19 13:00] VITALS: BP 129/64
[2018-07-19] MEDS ORDERED: LIDOCAINE-MPF 1%, 5ML ONE ×2 (14:26→14:30)
[2018-07-19] MEDS ORDERED: MIDAZOLAM 1 MG/ML, 5ML ONE (14:36)
[2018-07-19] MEDS ORDERED: FLUMAZENIL 0.1 MG/1 ML, 5ML ONE (14:36)
[2018-07-19] MEDS ORDERED: FENTANYL PF 100 MCG/2ML ONE ×2 (14:36)
[2018-07-19] MEDS ORDERED: NALOXONE 1 MG/ML, 2ML ONE (14:36)
[2018-07-19] MEDS ORDERED: ONDANSETRON 2MG/ML, 2ML ONE (15:11)
[2018-07-19 16:00] VITALS: BP 112/71
[2018-07-19] MEDS ORDERED: MAGNESIUM SULFATE PMX 2GM/50ML 50 ML ONE (17:37)
[2018-07-19 19:00] VITALS: BP 108/69
[2018-07-19] MEDS: ATORVASTATIN 20 MG TABLET PO SCH (22:07)
[2018-07-19] MEDS: LATANOPROST OPHTH 0.005%, 2.5ML EACHEYE SCH (22:07)
[2018-07-20] MEDS: PIPERACILLIN/TAZO/PMX 3.375GM 50 ML IV SCH ×5 (00:07→23:32)
[2018-07-20 02:27] VITALS: BP 107/68
[2018-07-20 05:09] LABS: ALBUMIN 1.9 g/dL (3.4-5.0); ANION GAP 7 mmol/L (5-15); CALCIUM 9.1 mg/dL (8.5-10.1); CHLORIDE 107 mmol/L (98-107)
[2018-07-20 05:12] LABS: BASOPHILS # (AUTO) 0.01 x10^3/uL (0-0.1); BASOPHILS % (AUTO) 0 % (0-1); EOSINOPHILS # (AUTO) 0.15 x10^3/uL (0-0.4); EOSINOPHILS % (AUTO) 4 % (1-7); LYMPHOCYTES % (AUTO) 12 % (22-44); MD NO; MEAN CORPUSCULAR HEMOGLOBIN 31.5 pg (27.5-34.5); MEAN CORPUSCULAR HGB CONC 33.7 g/dL (33.2-36.2); MEAN CORPUSCULAR VOLUME 93.5 fL (81-97); MEAN PLATELET VOLUME 8.2 fL (7.4-10.4); MONOCYTES # (AUTO) 0.31 x10^3/uL (0.2-0.8); MONOCYTES % (AUTO) 7 % (2-9); NEUTROPHILS # (AUTO) 3.34 x10^3/uL (1.8-6.8); NEUTROPHILS % (AUTO) 78 % (42-75); PLATELET COUNT 204 x10^3/uL (130-400)
[2018-07-20 05:27] LABS: ALANINE AMINOTRANSFERASE 122 U/L (12-78); ALKALINE PHOSPHATASE 1595 U/L (45-117); BILIRUBIN,TOTAL 10.4 mg/dL (0.2-1.0); CREATININE 0.93 mg/dL (0.7-1.3)
[2018-07-20 07:06] VITALS: BP 108/70
[2018-07-20] MEDS: PHYTONADIONE 10 MG/ML, 1ML SQ SCH (09:00)
[2018-07-20] MEDS: TAMSULOSIN 0.4 MG CAP.ER.24H PO SCH (09:58)
[2018-07-20] MEDS: MULTIVITAMINS/MINERALS TABLET PO SCH (09:58)
[2018-07-20] MEDS: TIMOLOL OPHTH 0.5%, 5ML EACHEYE SCH ×2 (09:59→21:25)
[2018-07-20] MEDS: CHOLECALCIFEROL 1,000 UNIT TABLET PO SCH (09:59)
[2018-07-20] MEDS: ENOXAPARIN 80 MG/0.8 ML SQ SCH (13:03)
[2018-07-20 14:01] VITALS: BP 107/67
[2018-07-20] MEDS ORDERED: metFORMIN 500 MG TABLET PO SCH (17:00)
[2018-07-20 18:49] VITALS: BP 126/66
[2018-07-20] MEDS: LATANOPROST OPHTH 0.005%, 2.5ML EACHEYE SCH (21:27)
[2018-07-20] MEDS: ATORVASTATIN 20 MG TABLET PO SCH (21:27)
[2018-07-20] MEDS: DIPHENHYDRAMINE 25 MG CAPSULE PO PRN (21:42)
[2018-07-21] MEDS: ENOXAPARIN 80 MG/0.8 ML SQ SCH ×2 (01:19→11:57)
[2018-07-21 02:20] VITALS: BP 99/52
[2018-07-21 04:49] LABS: ANION GAP 7 mmol/L (5-15); CALCIUM 9.4 mg/dL (8.5-10.1); CHLORIDE 107 mmol/L (98-107)
[2018-07-21 05:04] LABS: ALANINE AMINOTRANSFERASE 99 U/L (12-78); ALKALINE PHOSPHATASE 1385 U/L (45-117); BILIRUBIN,TOTAL 6.1 mg/dL (0.2-1.0); CREATININE 0.94 mg/dL (0.7-1.3); TOTAL PROTEIN 5.1 g/dL (6.4-8.2)
[2018-07-21 05:06] LABS: MEAN CORPUSCULAR HEMOGLOBIN 31.7 pg (27.5-34.5); MEAN CORPUSCULAR HGB CONC 33.6 g/dL (33.2-36.2); MEAN CORPUSCULAR VOLUME 94.5 fL (81-97); MEAN PLATELET VOLUME 8.1 fL (7.4-10.4); PLATELET COUNT 191 x10^3/uL (130-400); RED BLOOD COUNT 3.43 x10^6/uL (4.38-5.82); RED CELL DISTRIBUTION WIDTH 15.4 % (9.4-14.8)
[2018-07-21 05:54] LABS: BASOPHILS # (AUTO) 0.01 x10^3/uL (0-0.1); BASOPHILS % (AUTO) 0 % (0-1); EOSINOPHILS # (AUTO) 0.13 x10^3/uL (0-0.4); EOSINOPHILS % (AUTO) 3 % (1-7); LYMPHOCYTES % (AUTO) 12 % (22-44); MD SCAN; MONOCYTES # (AUTO) 0.37 x10^3/uL (0.2-0.8); MONOCYTES % (AUTO) 7 % (2-9); NEUTROPHILS # (AUTO) 4.04 x10^3/uL (1.8-6.8); NEUTROPHILS % (AUTO) 79 % (42-75)
[2018-07-21] MEDS: PIPERACILLIN/TAZO/PMX 3.375GM 50 ML IV SCH ×3 (05:55→16:49)
[2018-07-21 06:40] VITALS: BP 108/67
[2018-07-21] MEDS: MULTIVITAMINS/MINERALS TABLET PO SCH (09:37)
[2018-07-21] MEDS: CHOLECALCIFEROL 1,000 UNIT TABLET PO SCH (09:37)
[2018-07-21] MEDS: metFORMIN 500 MG TABLET PO SCH ×2 (09:37→16:49)
[2018-07-21] MEDS: TAMSULOSIN 0.4 MG CAP.ER.24H PO SCH (09:37)
[2018-07-21] MEDS: TIMOLOL OPHTH 0.5%, 5ML EACHEYE SCH ×2 (09:38→20:00)
[2018-07-21] MEDS: DIPHENHYDRAMINE 25 MG CAPSULE PO PRN (10:23)
[2018-07-21 12:59] VITALS: BP 98/58
[2018-07-21] MEDS: FAMOTIDINE 20 MG TABLET PO SCH ×2 (16:49→20:00)
[2018-07-21 18:46] VITALS: BP 109/67
[2018-07-21] MEDS: ATORVASTATIN 20 MG TABLET PO SCH (20:00)
[2018-07-21] MEDS ORDERED: LATANOPROST OPHTH 0.005%, 2.5ML EACHEYE SCH (21:00)
[2018-07-22] MEDS: ENOXAPARIN 80 MG/0.8 ML SQ SCH ×2 (00:01→13:14)
[2018-07-22] MEDS: PIPERACILLIN/TAZO/PMX 3.375GM 50 ML IV SCH ×3 (00:02→10:41)
[2018-07-22 01:42] VITALS: BP 102/52
[2018-07-22 05:10] LABS: ALBUMIN 1.9 g/dL (3.4-5.0); ANION GAP 7 mmol/L (5-15); CALCIUM 9.1 mg/dL (8.5-10.1); CHLORIDE 106 mmol/L (98-107)
[2018-07-22 05:25] LABS: ALANINE AMINOTRANSFERASE 77 U/L (12-78); ALKALINE PHOSPHATASE 1153 U/L (45-117); BILIRUBIN,TOTAL 5.1 mg/dL (0.2-1.0); CREATININE 0.89 mg/dL (0.7-1.3)
[2018-07-22 06:57] VITALS: BP 113/56
[2018-07-22] MEDS: metFORMIN 500 MG TABLET PO SCH (07:52)
[2018-07-22] MEDS: FAMOTIDINE 20 MG TABLET PO SCH (07:52)
[2018-07-22] MEDS: TIMOLOL OPHTH 0.5%, 5ML EACHEYE SCH (07:52)
[2018-07-22] MEDS: CHOLECALCIFEROL 1,000 UNIT TABLET PO SCH (07:52)
[2018-07-22] MEDS: TAMSULOSIN 0.4 MG CAP.ER.24H PO SCH (07:52)
[2018-07-22] MEDS: MULTIVITAMINS/MINERALS TABLET PO SCH (07:52)
[2018-07-22 13:52] VITALS: BP 108/66
[2018-07-22] MEDS ORDERED: ENOX80SY4 SQ (14:48)
[2018-07-22] MEDS ORDERED: DOCU-131 PO (14:48)
[2018-07-22] MEDS ORDERED: FAMO20TA7 PO (14:48)
== END 2018-07-22 17:25 | disposition home or self-care (01) | DRG 444 ==
LOC: ED 13:42 → EDIP 16:22 → 3NW 18:50
PROVIDERS: ADMIT Hospitalist; ATTEND Hospitalist
PROC: 0F9930Z Drainage of Common Bile Duct with Drainage Device, Percutaneous Approach (ICD-10-PCS; principal; 2018-07-19)
PROC: 0FJB8ZZ Inspection of Hepatobiliary Duct, Via Natural or Artificial Opening Endoscopic (ICD-10-PCS; 2018-07-19)
PROC: BF111ZZ Fluoroscopy of Biliary and Pancreatic Ducts using Low Osmolar Contrast (ICD-10-PCS; 2018-07-19)
DX: K83.1 Obstruction of bile duct (principal); I26.99 Other pulmonary embolism without acute cor pulmonale; C85.10 Unspecified B-cell lymphoma, unspecified site; J90 Pleural effusion, not elsewhere classified; J98.11 Atelectasis; Z88.6 Allergy status to analgesic agent; D64.9 Anemia, unspecified; E11.65 Type 2 diabetes mellitus with hyperglycemia; E78.00 Pure hypercholesterolemia, unspecified; H40.9 Unspecified glaucoma; I25.10 Atherosclerotic heart disease of native coronary artery without angina pectoris; I25.2 Old myocardial infarction; I70.0 Atherosclerosis of aorta; K40.90 Unilateral inguinal hernia, without obstruction or gangrene, not specified as recurrent; K44.9 Diaphragmatic hernia without obstruction or gangrene; L29.9 Pruritus, unspecified; M85.80 Other specified disorders of bone density and structure, unspecified site; N40.0 Benign prostatic hyperplasia without lower urinary tract symptoms; Z86.010 Personal history of colon polyps; Z87.891 Personal history of nicotine dependence; Z95.1 Presence of aortocoronary bypass graft; Z95.5 Presence of coronary angioplasty implant and graft; Z79.82 Long term (current) use of aspirin; Z79.899 Other long term (current) drug therapy; Z79.84 Long term (current) use of oral hypoglycemic drugs; K86.89 Other specified diseases of pancreas
CPT/HCPCS: 36415; 47534; 71275; 74177; 76000; 80053; 80061; 81003; 82140; 83036; 83690; 83735; 84100; 84439; 84443; 85025; 85520; 85610; 87040; 96374; 99156; 99157; 99285; C1894; G0378; J1644; J1650; J2250; J2405; J2543; J2704; J2710; J3010; J3430; Q9967; C1729; C1751; C1769; J1200; J2310; J3475; J7030; Q0163

== ENCOUNTER 2018-07-31 15:11 | Inpatient (IN) | payer MEDICARE ==
[~2018-07-31] VITALS: Ht 170.2 cm; Wt 75.6 kg
[~2018-07-31 15:11] MED LIST changes: +DOCU-131 PO; +ENOX80SY4 SQ; +FAMO20TA7 PO
[2018-07-31] MEDS ORDERED: SODIUM CHLORIDE FLUSH 10ML SYR IVF ONE (16:00)
[2018-07-31 16:05] LABS: BASOPHILS # (AUTO) 0.05 x10^3/uL (0-0.1); BASOPHILS % (AUTO) 1 % (0-1); EOSINOPHILS # (AUTO) 0.04 x10^3/uL (0-0.4); EOSINOPHILS % (AUTO) 1 % (1-7); LYMPHOCYTES # (AUTO) 0.65 x10^3/uL (1-3.4); LYMPHOCYTES % (AUTO) 12 % (22-44); MD NO; MEAN CORPUSCULAR HEMOGLOBIN 32.4 pg (27.5-34.5); MEAN CORPUSCULAR HGB CONC 33.6 g/dL (33.2-36.2); MEAN CORPUSCULAR VOLUME 96.3 fL (81-97); MEAN PLATELET VOLUME 7.9 fL (7.4-10.4); MONOCYTES # (AUTO) 0.28 x10^3/uL (0.2-0.8); MONOCYTES % (AUTO) 5 % (2-9); NEUTROPHILS # (AUTO) 4.48 x10^3/uL (1.8-6.8); NEUTROPHILS % (AUTO) 82 % (42-75); PLATELET COUNT 220 x10^3/uL (130-400); RED BLOOD COUNT 2.95 x10^6/uL (4.38-5.82); RED CELL DISTRIBUTION WIDTH 15.7 % (9.4-14.8)
[2018-07-31 16:14] LABS: INTERNATIONAL NORMALIZED RATIO 1.1 (0.93-1.1); PROTHROMBIN TIME 11.5 Seconds (9.6-11.5)
[2018-07-31 16:17] LABS: ALANINE AMINOTRANSFERASE 53 U/L (12-78); ALBUMIN 2.3 g/dL (3.4-5.0); ANION GAP 7 mmol/L (5-15); CALCIUM 9.9 mg/dL (8.5-10.1); CHLORIDE 103 mmol/L (98-107); CREATININE 1.14 mg/dL (0.7-1.3)
[2018-07-31 16:19] LABS: ALKALINE PHOSPHATASE 542 U/L (45-117); BILIRUBIN,TOTAL 3.2 mg/dL (0.2-1.0)
[2018-07-31] MEDS ORDERED: MAGNESIUM SULFATE PMX 2GM/50ML 50 ML IV ONE (17:00)
--- NOTE | 2018-07-31 17:33 | NUR ---
DR PERALTA AT BEDSIDE, ASSESSMENT IN PROGRESS
[2018-07-31] MEDS ORDERED: MAGNESIUM SULFATE PMX 2GM/50ML 50 ML ONE (17:57)
[2018-07-31] MEDS ORDERED: OMNIPAQUE 350 MG/ML, 100ML BOTTLE ONE (18:10)
[2018-07-31] MEDS ORDERED: ACETAMINOPHEN 325 MG TABLET PO PRN (18:30)
[2018-07-31] MEDS ORDERED: DOCUSATE 100 MG CAPSULE PO PRN (18:30)
[2018-07-31] MEDS ORDERED: TEMAZEPAM 15 MG CAPSULE PO PRN (18:30)
[2018-07-31] MEDS ORDERED: ONDANSETRON 2MG/ML, 2ML IVPush PRN (18:30)
[2018-07-31] MEDS ORDERED: morphine SULFATE 10 MG/ML, 1ML IVPush PRN (18:30)
[2018-07-31 19:03] LABS: BASOPHILS # (AUTO) 0.03 x10^3/uL (0-0.1); BASOPHILS % (AUTO) 1 % (0-1); EOSINOPHILS # (AUTO) 0.06 x10^3/uL (0-0.4); EOSINOPHILS % (AUTO) 1 % (1-7); LYMPHOCYTES # (AUTO) 0.63 x10^3/uL (1-3.4); LYMPHOCYTES % (AUTO) 13 % (22-44); MD NO; MEAN CORPUSCULAR HEMOGLOBIN 32.7 pg (27.5-34.5); MEAN CORPUSCULAR HGB CONC 34.2 g/dL (33.2-36.2); MEAN CORPUSCULAR VOLUME 95.8 fL (81-97); MEAN PLATELET VOLUME 8.4 fL (7.4-10.4); MONOCYTES # (AUTO) 0.31 x10^3/uL (0.2-0.8); MONOCYTES % (AUTO) 6 % (2-9); NEUTROPHILS # (AUTO) 3.82 x10^3/uL (1.8-6.8); NEUTROPHILS % (AUTO) 79 % (42-75); PLATELET COUNT 214 x10^3/uL (130-400); RED BLOOD COUNT 3.05 x10^6/uL (4.38-5.82); RED CELL DISTRIBUTION WIDTH 15.9 % (9.4-14.8)
[2018-07-31 19:25] LABS: MICROSCOPIC NOT IND
[2018-07-31 19:30] VITALS: BP 101/62
[2018-07-31 19:30] LABS: CULTURE INDICATED? YES
[2018-07-31] MEDS: INSULIN LISPRO 100 UNITS/ML, PEN SQ-INSULIN SCH (20:14)
[2018-07-31] MEDS: ENOXAPARIN 80 MG/0.8 ML SQ SCH (20:19)
[2018-07-31] MEDS: ATORVASTATIN 20 MG TABLET PO SCH (20:19)
[2018-07-31] MEDS: FAMOTIDINE 20 MG TABLET PO SCH (20:19)
[2018-07-31] MEDS: TIMOLOL OPHTH 0.5%, 5ML EACHEYE SCH (20:29)
[2018-07-31] MEDS ORDERED: TEMPLATE NON-FORMULARY MED. (Vit A/Vit C/Vit E/Zinc/Copper** (Preservision Areds Softgel PO SCH (21:00)
[2018-08-01 02:01] VITALS: BP 95/58
[2018-08-01 05:57] LABS: CHLORIDE 106 mmol/L (98-107)
[2018-08-01 06:06] LABS: ALANINE AMINOTRANSFERASE 49 U/L (12-78); ALBUMIN 2.1 g/dL (3.4-5.0); ALKALINE PHOSPHATASE 466 U/L (45-117); ANION GAP 7 mmol/L (5-15); BILIRUBIN,TOTAL 2.6 mg/dL (0.2-1.0); CALCIUM 9.3 mg/dL (8.5-10.1); CREATININE 0.88 mg/dL (0.7-1.3); TOTAL PROTEIN 5.3 g/dL (6.4-8.2)
[2018-08-01 06:43] VITALS: BP 113/66
[2018-08-01] MEDS: MULTIVITAMINS/MINERALS TABLET PO SCH (08:50)
[2018-08-01] MEDS: FAMOTIDINE 20 MG TABLET PO SCH ×2 (08:50→21:26)
[2018-08-01] MEDS: TIMOLOL OPHTH 0.5%, 5ML EACHEYE SCH ×3 (08:51→21:24)
[2018-08-01] MEDS: INSULIN LISPRO 100 UNITS/ML, PEN SQ-INSULIN SCH ×4 (08:51→21:32)
[2018-08-01] MEDS: CHOLECALCIFEROL 1,000 UNIT TABLET PO SCH (08:52)
[2018-08-01] MEDS: TAMSULOSIN 0.4 MG CAP.ER.24H PO SCH (08:55)
[2018-08-01] MEDS: POLYETHYLENE GLYCOL 17 GM PACKET PO SCH (08:55)
[2018-08-01] MEDS: ENOXAPARIN 80 MG/0.8 ML SQ SCH (09:00)
[2018-08-01] MEDS: ASPIRIN 81 MG TABLET EC PO SCH (09:00)
[2018-08-01] MEDS ORDERED: LATANOPROST OPHTH 0.005%, 2.5ML EACHEYE SCH (09:00)
[2018-08-01] MEDS ORDERED: PHYTONADIONE 5 MG TABLET PO ONE (11:00)
[2018-08-01 12:35] VITALS: BP 92/51
[2018-08-01 19:01] VITALS: BP 122/68
[2018-08-01] MEDS: ATORVASTATIN 20 MG TABLET PO SCH (21:26)
[2018-08-02 01:23] VITALS: BP 92/56
[2018-08-02 04:32] LABS: BASOPHILS # (AUTO) 0.01 x10^3/uL (0-0.1); BASOPHILS % (AUTO) 0 % (0-1); EOSINOPHILS # (AUTO) 0.14 x10^3/uL (0-0.4); EOSINOPHILS % (AUTO) 3 % (1-7); LYMPHOCYTES # (AUTO) 0.65 x10^3/uL (1-3.4); LYMPHOCYTES % (AUTO) 16 % (22-44); MD NO; MEAN CORPUSCULAR HEMOGLOBIN 32.5 pg (27.5-34.5); MEAN CORPUSCULAR HGB CONC 33.9 g/dL (33.2-36.2); MEAN PLATELET VOLUME 7.7 fL (7.4-10.4); MONOCYTES # (AUTO) 0.25 x10^3/uL (0.2-0.8); MONOCYTES % (AUTO) 6 % (2-9); NEUTROPHILS # (AUTO) 3.07 x10^3/uL (1.8-6.8); NEUTROPHILS % (AUTO) 75 % (42-75); PLATELET COUNT 223 x10^3/uL (130-400); RED BLOOD COUNT 2.69 x10^6/uL (4.38-5.82); RED CELL DISTRIBUTION WIDTH 15.8 % (9.4-14.8)
[2018-08-02 04:43] LABS: ALBUMIN 2.1 g/dL (3.4-5.0); ANION GAP 6 mmol/L (5-15); CALCIUM 9.4 mg/dL (8.5-10.1); CHLORIDE 105 mmol/L (98-107)
[2018-08-02 04:47] LABS: ALANINE AMINOTRANSFERASE 49 U/L (12-78); ALKALINE PHOSPHATASE 448 U/L (45-117); BILIRUBIN,TOTAL 2.3 mg/dL (0.2-1.0); TOTAL PROTEIN 5.2 g/dL (6.4-8.2)
[2018-08-02] MEDS: INSULIN LISPRO 100 UNITS/ML, PEN SQ-INSULIN SCH ×4 (07:00→21:11)
[2018-08-02 07:51] VITALS: BP 99/53
[2018-08-02] MEDS: TIMOLOL OPHTH 0.5%, 5ML EACHEYE SCH ×2 (09:00→20:54)
[2018-08-02] MEDS: MULTIVITAMINS/MINERALS TABLET PO SCH (09:00)
[2018-08-02] MEDS: FAMOTIDINE 20 MG TABLET PO SCH ×2 (09:00→20:54)
[2018-08-02] MEDS: POLYETHYLENE GLYCOL 17 GM PACKET PO SCH (09:00)
[2018-08-02] MEDS: CHOLECALCIFEROL 1,000 UNIT TABLET PO SCH (09:00)
[2018-08-02] MEDS: ASPIRIN 81 MG TABLET EC PO SCH (09:00)
[2018-08-02] MEDS ORDERED: FLUMAZENIL 0.1 MG/1 ML, 5ML ONE (11:02)
[2018-08-02] MEDS ORDERED: FENTANYL PF 100 MCG/2ML ONE ×2 (11:02)
[2018-08-02] MEDS ORDERED: MIDAZOLAM 1 MG/ML, 5ML ONE (11:02)
[2018-08-02] MEDS ORDERED: NALOXONE 1 MG/ML, 2ML ONE (11:02)
[2018-08-02 14:10] VITALS: BP 112/68
[2018-08-02] MEDS: TAMSULOSIN 0.4 MG CAP.ER.24H PO SCH (17:36)
[2018-08-02 19:58] VITALS: BP 104/61
[2018-08-02] MEDS: ATORVASTATIN 20 MG TABLET PO SCH (20:54)
[2018-08-02] MEDS ORDERED: LATANOPROST OPHTH 0.005%, 2.5ML EACHEYE SCH (21:00)
[2018-08-03 01:08] VITALS: BP 96/58
[2018-08-03 07:46] VITALS: BP 103/51
[2018-08-03] MEDS ORDERED: ENOXAPARIN 80 MG/0.8 ML SQ SCH (08:00)
[2018-08-03] MEDS: INSULIN LISPRO 100 UNITS/ML, PEN SQ-INSULIN SCH (08:13)
[2018-08-03] MEDS: TIMOLOL OPHTH 0.5%, 5ML EACHEYE SCH (09:53)
[2018-08-03] MEDS: CHOLECALCIFEROL 1,000 UNIT TABLET PO SCH (09:54)
[2018-08-03] MEDS: TAMSULOSIN 0.4 MG CAP.ER.24H PO SCH (09:54)
[2018-08-03] MEDS: FAMOTIDINE 20 MG TABLET PO SCH (09:54)
[2018-08-03] MEDS: ASPIRIN 81 MG TABLET EC PO SCH (09:54)
[2018-08-03] MEDS: MULTIVITAMINS/MINERALS TABLET PO SCH (09:54)
[2018-08-03] MEDS: POLYETHYLENE GLYCOL 17 GM PACKET PO SCH (09:54)
== END 2018-08-03 10:45 | disposition home or self-care (01) | DRG 823 ==
LOC: ED 15:48 → EDIP 17:12 → 3NW 18:37 → DCLOUNGE 08-03 10:34
PROVIDERS: ADMIT Internal Medicine; ATTEND Internal Medicine
PROC: 07BD3ZX Excision of Aortic Lymphatic, Percutaneous Approach, Diagnostic (ICD-10-PCS; principal; 2018-08-02)
DX: C83.33 Diffuse large B-cell lymphoma, intra-abdominal lymph nodes (principal); E43 Unspecified severe protein-calorie malnutrition; C85.90 Non-Hodgkin lymphoma, unspecified, unspecified site; D68.69 Other thrombophilia; J90 Pleural effusion, not elsewhere classified; J98.11 Atelectasis; E11.9 Type 2 diabetes mellitus without complications; E78.00 Pure hypercholesterolemia, unspecified; E83.42 Hypomagnesemia; E86.0 Dehydration; I10 Essential (primary) hypertension; I25.10 Atherosclerotic heart disease of native coronary artery without angina pectoris; I25.2 Old myocardial infarction; L29.9 Pruritus, unspecified; N20.0 Calculus of kidney; N40.0 Benign prostatic hyperplasia without lower urinary tract symptoms; R62.7 Adult failure to thrive; Z80.3 Family history of malignant neoplasm of breast; Z82.49 Family history of ischemic heart disease and other diseases of the circulatory system; Z85.828 Personal history of other malignant neoplasm of skin; Z86.711 Personal history of pulmonary embolism; Z86.73 Personal history of transient ischemic attack (TIA), and cerebral infarction without residual deficits; Z87.891 Personal history of nicotine dependence; Z95.1 Presence of aortocoronary bypass graft; Z95.5 Presence of coronary angioplasty implant and graft
CPT/HCPCS: 36415; 49180; 70450; 71045; 71260; 74177; 77012; 80053; 81003; 82962; 83690; 83735; 84100; 85025; 85610; 85730; 86850; 86900; 87086; 88184; 88185; 88305; 88341; 88342; 88360; 88377; 93005; 99156; 99157; 99285; G0378; J1650; J2250; J3010; Q9967; J1815; J2310; J3475

== ENCOUNTER 2018-08-19 08:10 | Inpatient (IN) | payer MEDICARE ==
[~2018-08-19] VITALS: Ht 172.7 cm; Wt 73.7 kg
[2018-08-19] MEDS ORDERED: MAALOX/HYOSCYAMINE/LIDOCAINE 45 ML BTL ONE (08:36)
[2018-08-19] MEDS ORDERED: ONDANSETRON 2MG/ML, 2ML ONE (08:36)
[2018-08-19] MEDS ORDERED: SODIUM CHLORIDE FLUSH 10ML SYR IVF ONE (09:00)
[2018-08-19] MEDS ORDERED: ONDANSETRON 2MG/ML, 2ML IVPush ONE (09:00)
[2018-08-19] MEDS ORDERED: SODIUM CHLORIDE 0.9% 1,000ML IVBOLUS ONE ×2 (09:00→10:00)
[2018-08-19] MEDS ORDERED: HYDROmorphone 1 MG/ML, 1ML INJ IV ONE (09:00)
[2018-08-19] MEDS ORDERED: MAALOX/HYOSCYAMINE/LIDOCAINE 45 ML BTL PO ONE (09:00)
[2018-08-19] MEDS ORDERED: ASPIRIN 81 MG TABLET CHEW PO ONE (09:00)
[2018-08-19] MEDS ORDERED: HYDROmorphone 2 MG/ML, 1ML ONE (09:01)
[2018-08-19] MEDS ORDERED: ASPIRIN 81 MG TABLET CHEW ONE (09:02)
[2018-08-19 09:18] LABS: MEAN CORPUSCULAR HEMOGLOBIN 31.5 pg (27.5-34.5); MEAN CORPUSCULAR HGB CONC 33.2 g/dL (33.2-36.2); MEAN CORPUSCULAR VOLUME 94.8 fL (81-97); MEAN PLATELET VOLUME 7.5 fL (7.4-10.4); PLATELET COUNT 313 x10^3/uL (130-400); RED BLOOD COUNT 3.66 x10^6/uL (4.38-5.82); RED CELL DISTRIBUTION WIDTH 17.6 % (9.4-14.8)
[2018-08-19 09:24] LABS: ALANINE AMINOTRANSFERASE 73 U/L (12-78); ALBUMIN 3.1 g/dL (3.4-5.0); ANION GAP 15 mmol/L (5-15); CALCIUM 11.3 mg/dL (8.5-10.1); CHLORIDE 88 mmol/L (98-107); CREATININE 3.09 mg/dL (0.7-1.3)
[2018-08-19 09:26] LABS: INTERNATIONAL NORMALIZED RATIO 1.15 (0.93-1.1)
[2018-08-19 09:29] LABS: ALKALINE PHOSPHATASE 633 U/L (45-117); BILIRUBIN,TOTAL 4.9 mg/dL (0.2-1.0); TOTAL PROTEIN 7.1 g/dL (6.4-8.2); TROPONIN I < 0.015 ng/mL (0.000-0.045)
[2018-08-19] MEDS ORDERED: RANI150T23 PO (09:33)
[2018-08-19 09:36] LABS: MD YES
--- NOTE | 2018-08-19 09:40 | NUR ---
PATIENT ARRIVES WITH DAUGHTERS TO HOSPITAL WITH MAIN C/O KEEPING THE PATIENT COMFORTABLE. THEY WERE UNABLE TO CONNECT WITH HOSPICE UNTIL THURSDAY AND THE PATIENT IS IN PAIN. HE REPORTS THAT HE DOESN'T WANT TO DO ANYTHING HE DOESN'T WANT TO. IV STARTED, MEDICATIONS GIVEN, AND LABS DRAWN WITH IV START. PATIENT REFUSED SECOND SET OF BLOOD CULTURES AT THIS TIME. COMFORT MEASURES TAKEN INCLUDING WARMER, BLANKETS, GLYCERIN SWABS, AND ICE CHIPS.
[2018-08-19 09:43] LABS: BAND#(MANUAL) 2.21 x10^3/uL; BANDS%(MANUAL) 23 % (0-7); LYMPH#(MANUAL) 0.38 x10^3/uL (1-3.4); LYMPHS% (MANUAL) 4 % (22-44); METAMYELOCYTES% (MANUAL) 1 % (0-1); MONOS#(MANUAL) 0.19 x10^3/uL (0.3-2.7); MONOS% (MANUAL) 2 % (2-9); REACTIVE LYMPHS % (MANUAL) 1 % (0-0); SEG#(MANUAL) 6.62 x10^3/uL (1.8-6.8); SEGS% (MANUAL) 69 % (42-75)
[2018-08-19 09:44] LABS: <PLATELET ESTIMATE> ADEQUATE; ANISOCYTOSIS 1+; OVALOCYTES 1+; POLYCHROMASIA 1+
[2018-08-19 09:45] LABS: <PLT MORPHOLOGY> NORMAL PLT MORPH
[2018-08-19] MEDS ORDERED: SODIUM CHLORIDE 0.9% 1,000 ML IV ONE (10:00)
[2018-08-19] MEDS ORDERED: PIPERACILLIN/TAZO/PMX 3.375GM 50 ML IV ONE (10:00)
--- NOTE | 2018-08-19 10:06 | NUR ---
PATIENT FLUIDS COMPLETE 1000ML INFUSED
[2018-08-19] MEDS ORDERED: PIPERACILLIN/TAZO/PMX 3.375GM 50 ML ONE (10:10)
--- NOTE | 2018-08-19 10:32 | NUR ---
IV FLUIDS CONTINUED. MD NEWMAN (NEPHRO) HAS BEEN IN WITH PATIENT TO DISCUSS POC. PATIENT FOLELY INSERTED, SMALL AMOUNT OF LIGHT BROWN STOOL CLEANED. PATIENT SACRUM HAD WOUND NOTED, PASTE FROM HOME INTACT ON WOUND. COMFORT MEASURES GIVEN
--- NOTE | 2018-08-19 10:44 | NUR ---
GI MD IS WITH PATIENT AND FAMILY TO DISCUSS PLAN OF CARE
[2018-08-19 10:47] LABS: CULTURE INDICATED? YES; MICROSCOPIC INDICATED
[2018-08-19] MEDS ORDERED: SODIUM CHLORIDE 0.9% 1,000 ML IV SCH (11:00)
[2018-08-19 11:05] LABS: POTASSIUM,URINE RANDOM 53 mmol/L; SODIUM,URINE RANDOM 14 mmol/L
[2018-08-19 11:08] LABS: CHLORIDE,URINE RANDOM < 10 mmol/L
[2018-08-19] MEDS ORDERED: LABETALOL 5MG/ML, 20ML IVPush PRN (11:30)
[2018-08-19] MEDS ORDERED: ZOSYN PER PHARMACY MC PRN (11:30)
[2018-08-19] MEDS ORDERED: PROMETHAZINE 25 MG/ML, 1ML IM PRN (12:00)
[2018-08-19] MEDS ORDERED: hydrALAzine 20 MG/ML, 1ML IVPush PRN (12:00)
[2018-08-19 12:26] LABS: ABSOLUTE RETICS # 0.094 x10^6/uL (0.5-1.5); RETICULOCYTE COUNT % 3.3 % (0.5-1.5)
[2018-08-19 12:30] VITALS: BP 98/60
[2018-08-19 12:31] LABS: RED BLOOD COUNT 2.85 x10^6/uL (4.38-5.82)
[2018-08-19] MEDS: morphine SULFATE 10 MG/ML, 1ML IVPush PRN ×2 (12:33→17:05)
[2018-08-19] MEDS: PANTOPRAZOLE 40 MG IV IVPush SCH (12:33)
[2018-08-19] MEDS: SODIUM CHLORIDE 0.9% 1,000 ML IV SCH ×2 (12:33→20:04)
[2018-08-19 12:36] LABS: TROPONIN I < 0.015 ng/mL (0.000-0.045)
[2018-08-19 13:38] LABS: HEMOGLOBIN A1C 7.3 % (4.2-6.3)
[2018-08-19] MEDS ORDERED: ONDANSETRON 2MG/ML, 2ML IVPush PRN (15:00)
[2018-08-19] MEDS ORDERED: PIPERACILLIN/TAZO/PMX 2.25GM 50 ML IVPB SCH (16:30)
[2018-08-19] MEDS: PIPERACILLIN/TAZO/PMX 2.25GM 50 ML IVPB SCH (17:11)
[2018-08-19 19:17] VITALS: BP 101/59
[2018-08-19 20:10] VITALS: BP 103/59
[2018-08-19] MEDS: LINEZOLID PMX 600MG/300ML 300 ML IV SCH (21:11)
[2018-08-20] MEDS: PANTOPRAZOLE 40 MG IV IVPush SCH ×3 (00:09→16:49)
[2018-08-20] MEDS: SODIUM CHLORIDE 0.9% 1,000 ML IV SCH ×2 (00:10→08:01)
[2018-08-20 00:21] VITALS: BP 91/43
[2018-08-20] MEDS: PIPERACILLIN/TAZO/PMX 2.25GM 50 ML IVPB SCH ×4 (01:48→17:35)
[2018-08-20] MEDS: ASPIRIN 325 MG TABLET EC PO SCH (06:27)
[2018-08-20 06:42] VITALS: BP 91/50
[2018-08-20] MEDS ORDERED: DEXTROSE 4 GM TAB.CHEW PO PRN (09:00)
[2018-08-20] MEDS ORDERED: DEXTROSE 50%, 50ML SYRINGE IVPush PRN (09:00)
[2018-08-20] MEDS ORDERED: GLUCAGON 1 MG IM PRN (09:00)
[2018-08-20] MEDS ORDERED: MAALOX/HYOSCYAMINE/LIDOCAINE 45 ML BTL PO PRN (09:00)
[2018-08-20 09:31] LABS: MEAN CORPUSCULAR HEMOGLOBIN 31.9 pg (27.5-34.5); MEAN CORPUSCULAR HGB CONC 33.7 g/dL (33.2-36.2); MEAN CORPUSCULAR VOLUME 94.8 fL (81-97); MEAN PLATELET VOLUME 7.2 fL (7.4-10.4); PLATELET COUNT 187 x10^3/uL (130-400); RED BLOOD COUNT 2.87 x10^6/uL (4.38-5.82); RED CELL DISTRIBUTION WIDTH 17.8 % (9.4-14.8)
[2018-08-20 09:33] LABS: MD YES
[2018-08-20 09:35] LABS: ALANINE AMINOTRANSFERASE 78 U/L (12-78); ANION GAP 8 mmol/L (5-15); ANISOCYTOSIS 1+; BANDS%(MANUAL) 3 % (0-7); CHLORIDE 100 mmol/L (98-107); CREATININE 2.27 mg/dL (0.7-1.3); EOS#(MANUAL) 0.07 x10^3/uL (0.0-0.4); EOS% (MANUAL) 1 % (1-7); LYMPH#(MANUAL) 0.26 x10^3/uL (1-3.4); LYMPHS% (MANUAL) 4 % (22-44); MONOS% (MANUAL) 3 % (2-9); SEG#(MANUAL) 5.87 x10^3/uL (1.8-6.8); SEGS% (MANUAL) 89 % (42-75)
[2018-08-20 09:36] LABS: <PLATELET ESTIMATE> ADEQUATE; <PLT MORPHOLOGY> NORMAL PLT MORPH; OVALOCYTES 1+; POLYCHROMASIA 1+
[2018-08-20 09:37] LABS: ALKALINE PHOSPHATASE 508 U/L (45-117); BILIRUBIN,TOTAL 5.3 mg/dL (0.2-1.0); TOTAL PROTEIN 5.2 g/dL (6.4-8.2)
[2018-08-20] MEDS: LINEZOLID PMX 600MG/300ML 300 ML IV SCH ×2 (10:52→22:17)
[2018-08-20] MEDS: IRON SUCROSE COMPLEX 100MG/5ML IV SCH (10:55)
[2018-08-20] MEDS: SODIUM CHLORIDE FLUSH 10ML SYR IVF SCH ×2 (10:56→20:49)
[2018-08-20] MEDS: INSULIN LISPRO 100 UNITS/ML, PEN SQ-INSULIN SCH ×3 (11:00→20:49)
[2018-08-20] MEDS ORDERED: LIDOCAINE-MPF 1%, 5ML ONE (11:10)
[2018-08-20 12:05] VITALS: BP 91/50
[2018-08-20] MEDS ORDERED: FENTANYL PF 100 MCG/2ML ONE (13:10)
[2018-08-20] MEDS ORDERED: ONDANSETRON 2MG/ML, 2ML ONE (13:37)
[2018-08-20] MEDS ORDERED: VISIPAQUE 270 MG/ML, 50ML BOTTLE ONE (13:44)
[2018-08-20] MEDS ORDERED: MIDODRINE 5 MG TABLET PO PRN (14:30)
[2018-08-20 19:11] VITALS: BP 90/52
[2018-08-21 00:45] VITALS: BP 91/57
[2018-08-21] MEDS: PANTOPRAZOLE 40 MG IV IVPush SCH ×2 (00:48→11:29)
[2018-08-21] MEDS: PIPERACILLIN/TAZO/PMX 2.25GM 50 ML IVPB SCH ×4 (01:10→17:47)
[2018-08-21] MEDS: SODIUM CHLORIDE 0.9% 1,000 ML IV SCH (02:51)
[2018-08-21 06:38] VITALS: BP 106/60
[2018-08-21] MEDS: INSULIN LISPRO 100 UNITS/ML, PEN SQ-INSULIN SCH ×4 (08:29→21:00)
[2018-08-21] MEDS: SODIUM CHLORIDE FLUSH 10ML SYR IVF SCH ×2 (08:32→21:35)
[2018-08-21] MEDS: ASPIRIN 325 MG TABLET EC PO SCH (08:32)
[2018-08-21 08:39] LABS: MEAN CORPUSCULAR HEMOGLOBIN 31.8 pg (27.5-34.5); MEAN CORPUSCULAR HGB CONC 33.7 g/dL (33.2-36.2); MEAN CORPUSCULAR VOLUME 94.5 fL (81-97); MEAN PLATELET VOLUME 6.9 fL (7.4-10.4); PLATELET COUNT 161 x10^3/uL (130-400); RED BLOOD COUNT 2.55 x10^6/uL (4.38-5.82); RED CELL DISTRIBUTION WIDTH 18.4 % (9.4-14.8)
[2018-08-21 08:44] LABS: ALANINE AMINOTRANSFERASE 72 U/L (12-78); ALBUMIN 1.6 g/dL (3.4-5.0); ANION GAP 9 mmol/L (5-15); CALCIUM 8.5 mg/dL (8.5-10.1); CHLORIDE 102 mmol/L (98-107); CREATININE 1.71 mg/dL (0.7-1.3)
[2018-08-21 08:47] LABS: ALKALINE PHOSPHATASE 498 U/L (45-117); BILIRUBIN,TOTAL 4.8 mg/dL (0.2-1.0); TOTAL PROTEIN 4.5 g/dL (6.4-8.2)
[2018-08-21 08:55] LABS: BASOPHILS # (AUTO) 0.01 x10^3/uL (0-0.1); BASOPHILS % (AUTO) 0 % (0-1); EOSINOPHILS % (AUTO) 2 % (1-7); LYMPHOCYTES # (AUTO) 0.45 x10^3/uL (1-3.4); LYMPHOCYTES % (AUTO) 10 % (22-44); MD SCAN; MONOCYTES # (AUTO) 0.16 x10^3/uL (0.2-0.8); MONOCYTES % (AUTO) 4 % (2-9); NEUTROPHILS # (AUTO) 3.67 x10^3/uL (1.8-6.8); NEUTROPHILS % (AUTO) 84 % (42-75)
[2018-08-21] MEDS: LINEZOLID PMX 600MG/300ML 300 ML IV SCH (09:05)
[2018-08-21] MEDS: IRON SUCROSE COMPLEX 100MG/5ML IV SCH (10:12)
[2018-08-21 12:36] VITALS: BP 104/70
[2018-08-21 18:47] VITALS: BP 92/52
[2018-08-21] MEDS: PANTOPROZOLE 40MG TABLET PO SCH (21:35)
[2018-08-22] MEDS: PIPERACILLIN/TAZO/PMX 2.25GM 50 ML IVPB SCH ×4 (00:28→17:24)
[2018-08-22 00:57] VITALS: BP 94/50
[2018-08-22] MEDS: SODIUM CHLORIDE 0.9% 1,000 ML IV SCH ×2 (03:24→18:46)
[2018-08-22] MEDS: ASPIRIN 325 MG TABLET EC PO SCH (06:10)
[2018-08-22] MEDS: PANTOPROZOLE 40MG TABLET PO SCH ×2 (06:10→16:40)
[2018-08-22] MEDS: INSULIN LISPRO 100 UNITS/ML, PEN SQ-INSULIN SCH ×4 (07:52→21:00)
[2018-08-22 08:00] VITALS: BP 96/52
[2018-08-22 08:56] LABS: ALBUMIN 1.7 g/dL (3.4-5.0); ANION GAP 10 mmol/L (5-15); CALCIUM 8.8 mg/dL (8.5-10.1); CHLORIDE 104 mmol/L (98-107); CREATININE 1.55 mg/dL (0.7-1.3)
[2018-08-22 08:57] LABS: MEAN CORPUSCULAR HEMOGLOBIN 31.8 pg (27.5-34.5); MEAN CORPUSCULAR HGB CONC 33.4 g/dL (33.2-36.2); MEAN PLATELET VOLUME 7.4 fL (7.4-10.4); PLATELET COUNT 176 x10^3/uL (130-400); RED BLOOD COUNT 2.88 x10^6/uL (4.38-5.82); RED CELL DISTRIBUTION WIDTH 18.2 % (9.4-14.8)
[2018-08-22 09:21] LABS: BASOPHILS % (AUTO) 0 % (0-1); EOSINOPHILS # (AUTO) 0.06 x10^3/uL (0-0.4); EOSINOPHILS % (AUTO) 1 % (1-7); LYMPHOCYTES # (AUTO) 0.54 x10^3/uL (1-3.4); LYMPHOCYTES % (AUTO) 13 % (22-44); MD SCAN; MONOCYTES # (AUTO) 0.14 x10^3/uL (0.2-0.8); MONOCYTES % (AUTO) 3 % (2-9); NEUTROPHILS # (AUTO) 3.52 x10^3/uL (1.8-6.8); NEUTROPHILS % (AUTO) 83 % (42-75)
[2018-08-22] MEDS: IRON SUCROSE COMPLEX 100MG/5ML IV SCH (11:36)
[2018-08-22] MEDS: NEUTRA PHOS K 250 MG TABLET PO SCH ×2 (11:37→21:36)
[2018-08-22] MEDS: SODIUM CHLORIDE FLUSH 10ML SYR IVF SCH ×2 (11:37→21:36)
[2018-08-22] MEDS: DOCUSATE 50 MG/5 ML, 10ML UDC PO SCH ×2 (11:46→21:00)
[2018-08-22 13:10] VITALS: BP 103/43
[2018-08-22 19:39] VITALS: BP 92/48
[2018-08-22] MEDS ORDERED: DOCUSATE 50 MG/5 ML, 10ML UDC PO SCH (21:00)
[2018-08-23] MEDS: PIPERACILLIN/TAZO/PMX 2.25GM 50 ML IVPB SCH ×3 (00:35→12:39)
[2018-08-23 01:04] VITALS: BP 100/57
[2018-08-23] MEDS: ASPIRIN 325 MG TABLET EC PO SCH (06:03)
[2018-08-23] MEDS: PANTOPROZOLE 40MG TABLET PO SCH ×2 (06:03→17:32)
[2018-08-23] MEDS: INSULIN LISPRO 100 UNITS/ML, PEN SQ-INSULIN SCH ×4 (07:00→20:01)
[2018-08-23] MEDS: DOCUSATE 50 MG/5 ML, 10ML UDC PO SCH ×2 (07:00→20:02)
[2018-08-23 08:38] VITALS: BP 101/59
[2018-08-23] MEDS: SODIUM CHLORIDE FLUSH 10ML SYR IVF SCH ×2 (09:00→20:02)
[2018-08-23 12:12] LABS: MEAN CORPUSCULAR HEMOGLOBIN 32.5 pg (27.5-34.5); MEAN CORPUSCULAR HGB CONC 33.8 g/dL (33.2-36.2); MEAN CORPUSCULAR VOLUME 96.4 fL (81-97); MEAN PLATELET VOLUME 7.4 fL (7.4-10.4); PLATELET COUNT 188 x10^3/uL (130-400); RED BLOOD COUNT 2.99 x10^6/uL (4.38-5.82); RED CELL DISTRIBUTION WIDTH 18.1 % (9.4-14.8)
[2018-08-23 12:24] LABS: ALANINE AMINOTRANSFERASE 50 U/L (12-78); ALBUMIN 1.9 g/dL (3.4-5.0); ANION GAP 11 mmol/L (5-15); CALCIUM 8.9 mg/dL (8.5-10.1); CHLORIDE 107 mmol/L (98-107); CREATININE 1.32 mg/dL (0.7-1.3)
[2018-08-23 12:26] LABS: ALKALINE PHOSPHATASE 479 U/L (45-117); BILIRUBIN,TOTAL 2.3 mg/dL (0.2-1.0); TOTAL PROTEIN 4.9 g/dL (6.4-8.2)
[2018-08-23] MEDS: SODIUM CHLORIDE 0.9% 1,000 ML IV SCH (12:39)
[2018-08-23] MEDS: IRON SUCROSE COMPLEX 100MG/5ML IV SCH (12:39)
[2018-08-23 12:55] LABS: BASOPHILS % (AUTO) 0 % (0-1); EOSINOPHILS # (AUTO) 0.04 x10^3/uL (0-0.4); EOSINOPHILS % (AUTO) 1 % (1-7); LYMPHOCYTES # (AUTO) 0.81 x10^3/uL (1-3.4); LYMPHOCYTES % (AUTO) 16 % (22-44); MD SCAN; MONOCYTES # (AUTO) 0.27 x10^3/uL (0.2-0.8); MONOCYTES % (AUTO) 5 % (2-9); NEUTROPHILS % (AUTO) 78 % (42-75)
[2018-08-23 14:07] VITALS: BP 96/55
[2018-08-23 19:47] VITALS: BP 116/56
[2018-08-23] MEDS: PIPERACILLIN/TAZO/PMX 3.375GM 50 ML IVPB SCH (20:01)
[2018-08-24 01:21] VITALS: BP 93/55
[2018-08-24] MEDS: PIPERACILLIN/TAZO/PMX 3.375GM 50 ML IVPB SCH ×3 (02:17→14:00)
[2018-08-24] MEDS: SODIUM CHLORIDE 0.9% 1,000 ML IV SCH ×2 (02:17→15:09)
[2018-08-24] MEDS: PANTOPROZOLE 40MG TABLET PO SCH ×2 (05:59→16:50)
[2018-08-24] MEDS: ASPIRIN 325 MG TABLET EC PO SCH (05:59)
[2018-08-24 06:53] VITALS: BP 101/57
[2018-08-24] MEDS: INSULIN LISPRO 100 UNITS/ML, PEN SQ-INSULIN SCH ×3 (07:00→16:00)
[2018-08-24] MEDS: SODIUM CHLORIDE FLUSH 10ML SYR IVF SCH (08:46)
[2018-08-24] MEDS: DOCUSATE 50 MG/5 ML, 10ML UDC PO SCH (08:46)
[2018-08-24] MEDS: POTASSIUM CHLORIDE 20 MEQ TAB.ER.PRT PO SCH ×2 (11:24→16:00)
[2018-08-24] MEDS: IRON SUCROSE COMPLEX 100MG/5ML IV SCH (12:00)
[2018-08-24 12:42] VITALS: BP 95/51
== END 2018-08-24 18:23 | disposition hospice, home (50) | DRG 377 ==
LOC: ED 08:38 → EDIP 10:11 → 5SO 11:40 → 4EST 20:17
PROVIDERS: ADMIT Internal Medicine; ATTEND Internal Medicine
PROC: 0F2BX0Z Change Drainage Device in Hepatobiliary Duct, External Approach (ICD-10-PCS; principal; 2018-08-20)
DX: K92.2 Gastrointestinal hemorrhage, unspecified (principal); K85.90 Acute pancreatitis without necrosis or infection, unspecified; J18.0 Bronchopneumonia, unspecified organism; K83.1 Obstruction of bile duct; N17.9 Acute kidney failure, unspecified; I50.32 Chronic diastolic (congestive) heart failure; E87.1 Hypo-osmolality and hyponatremia; E44.1 Mild protein-calorie malnutrition; E87.2 Acidosis; C85.90 Non-Hodgkin lymphoma, unspecified, unspecified site; D62 Acute posthemorrhagic anemia; D68.9 Coagulation defect, unspecified; Z66 Do not resuscitate; R62.7 Adult failure to thrive; Z51.5 Encounter for palliative care; N40.0 Benign prostatic hyperplasia without lower urinary tract symptoms; K59.00 Constipation, unspecified; K21.9 Gastro-esophageal reflux disease without esophagitis; I11.0 Hypertensive heart disease with heart failure; E87.6 Hypokalemia; E86.0 Dehydration; E83.39 Other disorders of phosphorus metabolism; E78.00 Pure hypercholesterolemia, unspecified; E11.65 Type 2 diabetes mellitus with hyperglycemia; G89.29 Other chronic pain; E83.52 Hypercalcemia; I25.119 Atherosclerotic heart disease of native coronary artery with unspecified angina pectoris; E83.41 Hypermagnesemia; Z95.5 Presence of coronary angioplasty implant and graft; I25.2 Old myocardial infarction; Z87.891 Personal history of nicotine dependence; Z86.73 Personal history of transient ischemic attack (TIA), and cerebral infarction without residual deficits; Z82.49 Family history of ischemic heart disease and other diseases of the circulatory system; Z95.1 Presence of aortocoronary bypass graft; Z86.711 Personal history of pulmonary embolism; Z80.3 Family history of malignant neoplasm of breast; Z87.442 Personal history of urinary calculi; Z88.5 Allergy status to narcotic agent
CPT/HCPCS: 36415; 47536; 51702; 71045; 71250; 74176; 75984; 76770; 80053; 80069; 81001; 82306; 82310; 82330; 82436; 82570; 82728; 82962; 83036; 83540; 83550; 83605; 83615; 83690; 83735; 83880; 83970; 84100; 84133; 84145; 84300; 84484; 85014; 85025; 85045; 85610; 85730; 87040; 87070; 87077; 87086; 87106; 87186; 87205; 93005; 93306; 96374; 96375; G0378; J1170; J1756; J2020; J2405; J2543; J3010; Q9966; C1729; C1769; C9113; J2270; J7030